=== PATIENT | male | born 1955 | race Caucasian/White ===

== ENCOUNTER → 2020-02-06 09:13 | Outpatient (BNVA) | payer MEDICARE, SELFPAY | PROVIDERS: PCP Internal Medicine; Visit Provider Internal Medicine Gastroenterology | DX: Z13.89 Encounter for screening for other disorder (principal) | CPT/HCPCS: Q3014 ==

== ENCOUNTER 2020-04-28 10:30 | Outpatient (REF) | payer MEDICARE, SELFPAY ==
[2020-04-28 12:40] LABS: Alanine Aminotransferase 21 U/L (0-40); Albumin Level 4.1 g/dL (3.5-5.0); Alkaline Phosphatase 108 U/L (39-117); Aspartate Amino Transferase 21 U/L (5-37); Bilirubin Direct 0.3 mg/dL (0.0-0.5); Bilirubin Total 0.9 mg/dL (0.0-1.0); Cholesterol 164 mg/dL; Glucose Fasting 123 mg/dL (60-99); HDL Cholesterol 40 mg/dL; LDL Cholesterol Calculated 89 mg/dl; Total Protein 6.8 g/dL (6.5-8.0); Triglycerides 178 mg/dL
[2020-04-28 12:48] LABS: Estimated Average Glucose 117 mg/dL; Hemoglobin A1c % 5.7 %
[2020-04-28 13:16] LABS: Reflex LDLD? No
== END 2020-04-28 10:31 | disposition home or self-care (01) ==
LOC: HO.LNP 10:30
PROVIDERS: PCP Internal Medicine; Visit Provider Internal Medicine
DX: R73.09 Other abnormal glucose (principal); E78.00 Pure hypercholesterolemia, unspecified
CPT/HCPCS: 80061; 80076; 82947; 83036

== ENCOUNTER → 2020-06-04 09:52 | Outpatient (BNVA) | payer MEDICARE, SELFPAY | PROVIDERS: PCP Internal Medicine; Visit Provider Internal Medicine Gastroenterology | DX: Z12.11 Encounter for screening for malignant neoplasm of colon (principal); D64.9 Anemia, unspecified; K21.00 Gastro-esophageal reflux disease with esophagitis, without bleeding | CPT/HCPCS: 99212 ==

== ENCOUNTER 2020-08-04 09:16 | Day surgery (SDC) | payer MEDICARE, SELFPAY ==
[2020-07-28 15:16] VITALS: BMI 38.7
--- NOTE | 2020-08-03 10:39 | HO.ANESPROP2 ---
Documented by User: Amy Avilez 08/03/20 10:40 HPI - Anesthesia Eval Consult details Narrative: 65yo M for Colonoscopy PMFSH Active Problems Active Problems: All Active Problems (Updated 07/28/20 @ 15:12 by Sayra Perez) Hyperlipidemia (Acute) GERD with esophagitis (Acute) Anemia (Acute) History of coronary angioplasty with insertion of stent (Acute) Colon cancer screening (Acute) Past Medical History Medical History Coronary artery disease Erosive esophagitis GERD (gastroesophageal reflux disease) HTN (hypertension) Hyperlipidemia Myocardial infarction On beta veronica at home Surgical History Surgical History H/O endoscopy History of esophagogastroduodenoscopy (EGD) History of tonsillectomy Hx of colonoscopy Hx of heart artery stent [place] teeth extracted Social History Social History Alcohol intake: current Alcohol intake frequency: a few times a week Alcohol type: beer Patient Tobacco Use Status: Former Tobacco user Quit Date: 2003 Tobacco use type: Cigarette Advance Directives: No Advance Directives Information Provided: No Advance Directives on File: No Recently lost weight without trying: No Eating poorly because of decreased appetite: No Nutrition Risks: No Nutritional Risk Meds Allergies Allergy/AdvReac Type Severity Reaction Status Date / Time No Known Allergies Allergy Verified 08/04/20 09:52 Home Medications Medication Instructions Recorded Confirmed Last Taken Type aspirin 81 mg tablet,delayed 81 mg PO DAILY 02/06/20 08/04/20 08/02/20 History release atorvastatin 80 mg tablet 80 mg PO DAILY 02/06/20 07/28/20 Unknown History betamethasone dipropionate 0.05 % 1 appl TOPICAL DAILY 02/06/20 07/28/20 Unknown History topical cream metoprolol tartrate 50 mg tablet 50 mg PO BID 02/06/20 08/04/20 08/04/20 07:00 History omeprazole magnesium 20 mg 20 mg PO DAILY 02/06/20 08/04/20 08/04/20 07:00 History capsule,delayed release Exam Exam Date and Time: August 03, 2020 1039 Height,Weight and Vital Signs: Height 5 ft 9.5 in Weight 120.656 kg Assessment and Plan Assessment Anesthesia Assessment: Chart Reviewed Documented by User: Nasreen Bateman 08/04/20 10:41 PMFSH Past Medical History Medical History Coronary artery disease Erosive esophagitis GERD (gastroesophageal reflux disease) HTN (hypertension) Hyperlipidemia Myocardial infarction On beta veronica at home Surgical History Surgical History H/O endoscopy History of esophagogastroduodenoscopy (EGD) History of tonsillectomy Hx of colonoscopy Hx of heart artery stent [place] teeth extracted Social History Social History Alcohol intake: current Alcohol intake frequency: a few times a week Alcohol type: beer Patient Tobacco Use Status: Former Tobacco user Quit Date: 2003 Tobacco use type: Cigarette Advance Directives: No Advance Directives Information Provided: No Advance Directives on File: No Recently lost weight without trying: No Eating poorly because of decreased appetite: No Nutrition Risks: No Nutritional Risk Meds Allergies Allergy/AdvReac Type Severity Reaction Status Date / Time No Known Allergies Allergy Verified 08/04/20 09:52 Home Medications Medication Instructions Recorded Confirmed Last Taken Type aspirin 81 mg tablet,delayed 81 mg PO DAILY 02/06/20 08/04/20 08/02/20 History release atorvastatin 80 mg tablet 80 mg PO DAILY 02/06/20 07/28/20 Unknown History betamethasone dipropionate 0.05 % 1 appl TOPICAL DAILY 02/06/20 07/28/20 Unknown History topical cream metoprolol tartrate 50 mg tablet 50 mg PO BID 02/06/20 08/04/20 08/04/20 07:00 History omeprazole magnesium 20 mg 20 mg PO DAILY 02/06/20 08/04/20 08/04/20 07:00 History capsule,delayed release Exam Airway Mallampati Class: II TM Dist: >3cm Neck ROM: Full Heart: RRR Lungs: CTA Assessment and Plan Assessment Anesthesia Assessment: Anesthesia Plan Discussed and Chart Reviewed Final Anesthetic Review NPO: Yes ASA Class: II Final Preanesthetic Review: Meds/Allgs Chart Reviewed, Consent Obtained/Reviewed and Anes Risks/Benef Reviewed Patient Risk: Low Procedure Risk: Low Anesthetic Plan Anesthetic Plan: MAC: Disposition: Standard PACU
[2020-08-04 09:52] VITALS: BP 129/48; PULSE 57; RESP 16; TEMP 36.7; O2SAT 96
[2020-08-04] MEDS: Lactated Ringers 1,000 ML 100 ML IVCONT (10:09)
--- NOTE | 2020-08-04 10:57 | P.OP_ITS ---
Operative Note Operative Note Date of Service: 08/04/20 Narrative: Pre-op diagnosis: Colon cancer screening Post-op diagnosis: other ( colon polyp, diverticulosis, hemorrhoids) Procedure: COLONOSCOPY TILL CECUM WITH BIOPSIES Consent: Indications for the procedure and potential complications of bleeding, perforation, reaction to medications and missed diagnosis were discussed with the patient and informed consent was obtained. Instrument: Olympus PCF H 190 L variable stiffness pediatric colonoscope Monitoring: Vital signs and clinical assessment, intermittent blood pressure monitoring, continuous EKG monitoring, Pulse oximetry and Carbon Dioxide monitoring were done throughout the procedure. Colon withdrawl time was 15 minutes. Procedure: The patient was placed in the left lateral decubitis position and pre-procedure medications were administered. After a digital rectal examination of the ano-rectum, the video colonoscope was inserted into the rectum and advanced through the colon to the cecum. The colonoscope was slowly withdrawn in a retrograde panoramic fashion and the colon mucosa was carefully examined including a retroflexed view of the rectum. Findings and interventions are described below. Procedure Difficulty: Without difficulty Findings: Terminal Ileum: Not evaluated Cecum: Normal Ascending Colon: Normal Transverse Colon: Normal Descending Colon: Normal Sigmoid Colon: A few 4-5 mm diminutive appearing polyps in the rectosigmoid - 1 removed with cold biopsy. Moderate diverticulosis Rectum: Normal Ano-rectum: Moderate internal hemorrhoids Colon preparation: Good after copious irrigation Impression and Post Procedure Diagnosis: Colonoscopy Findings: A few 4-5 mm diminutive appearing polyps in the rectosigmoid - 1 removed with cold biopsy. Moderate diverticulosis seen in the sigmoid colon Moderate hemorrhoids on retroflexed exam. Plan: Await pathology results Patient has an appointment on 09/07/20 in the GI Clinic with Abiodun Fields M.D. Repeat Colonoscopy interval based on path results - in 5 years if polyps are adenomatous and 10 years if polyps are hyperplastic. Above findings were reviewed with the patient and colon polyps and diverticulosis handouts were given in the discharge area Surgeon: Abiodun Fields MD Anesthesia: MAC (Tawana Gonsalves CRNA) Was an Interventional Pain Physician used for this Procedure?: Yes Interventional Pain Physician: Nisreen Chen Estimated blood loss (mL): 0 Pathology: other (A. SIGMOID POLYP) Condition: stable Disposition: PACU
--- NOTE | 2020-08-04 10:57 | MHC.SHP ---
Pre-Procedural Eval Section A Date of Service: 08/04/20 The patient is an INPATIENT: No The History & Physical has been completed within 30 days and I have reviewed it.: No Section B Chief Complaint: screening Relevant Social History: Tobacco Use (past smoker) Present Medications: see Short Stay Collaborative assessment Medical History: Significant History (CAD status post stent) History of Previous Operations: Relevant previous surgery/procedure and date(s) (H/O endoscopy (~08/2010) History of esophagogastroduodenoscopy (EGD) (11/01/18) Hx of colonoscopy (~08/2010)) Allergies: Allergies Allergy/AdvReac Type Severity Reaction Status Date / Time No Known Allergies Allergy Verified 08/04/20 09:52 Review of Systems Sugical H&P ROS: Negative: Constitution, Cardiovascular and Respiratory and Yes, Specify: Gastrointestinal (GERD) Exam Surgical H&P Exam: Normal: Heart, Normal: Lungs, Normal: Extremities and Normal: Abdomen Plan Diagnosis/Plan: Unchanged I have reviewed the history and physical and performed a pertinent physical examination on my patient. No changes have occurred unless specified.
[2020-08-04 11:39] VITALS: BP 97/44; PULSE 60; RESP 16; TEMP 36.1; O2SAT 95
[2020-08-04 11:55] VITALS: BP 123/51; PULSE 60; RESP 16; TEMP 36.1; O2SAT 98
== END 2020-08-04 12:31 | disposition home or self-care (01) ==
PROVIDERS: PCP Internal Medicine; Visit Provider Internal Medicine Gastroenterology
PROC: 0DJD8ZZ Inspection of Lower Intestinal Tract, Via Natural or Artificial Opening Endoscopic (ICD-10-PCS; CPT 45378; principal; 2020-08-04 10:40)
DX: Z12.11 Encounter for screening for malignant neoplasm of colon (principal); K63.5 Polyp of colon; K57.30 Diverticulosis of large intestine without perforation or abscess without bleeding; K64.8 Other hemorrhoids; K21.9 Gastro-esophageal reflux disease without esophagitis; K20.80 Other esophagitis without bleeding; I25.10 Atherosclerotic heart disease of native coronary artery without angina pectoris; Z98.61 Coronary angioplasty status; I10 Essential (primary) hypertension; Z79.82 Long term (current) use of aspirin; Z79.899 Other long term (current) drug therapy; Z87.891 Personal history of nicotine dependence
CPT/HCPCS: 45380; 88305

== ENCOUNTER → 2020-09-07 14:35 | Outpatient (BNVA) | payer MEDICARE, SELFPAY | PROVIDERS: PCP Internal Medicine; Referring Provider Internal Medicine; Visit Provider Internal Medicine Gastroenterology | DX: K21.00 Gastro-esophageal reflux disease with esophagitis, without bleeding (principal); D64.9 Anemia, unspecified; K62.1 Rectal polyp; E78.5 Hyperlipidemia, unspecified; I25.10 Atherosclerotic heart disease of native coronary artery without angina pectoris; Z87.891 Personal history of nicotine dependence | CPT/HCPCS: 99212 ==

== ENCOUNTER 2020-10-26 10:56 | Outpatient (REF) | payer MEDICARE, SELFPAY ==
[2020-10-26 11:01] LABS: MANUAL DIFF FLAG NO
[2020-10-26 11:25] LABS: Basophils Absolute Auto 0.1 X10*3/uL (0.0-0.2); Basophils Percent Auto 1.1 % (0-2); Eosinophils Absolute Auto 0.6 X10*3/uL (0.0-0.4); Eosinophils Percent Auto 7.1 % (0-4); Hematocrit 39.2 % (42-52); Hemoglobin 13.1 g/dl (14.0-18.0); Imm Gran Abs Auto 0.03 X10*3/uL (0.00-0.03); Imm Gran Pct Auto 0.4 % (0.0-0.4); Lymphocytes Absolute Auto 2.9 X10*3/uL (1.2-4.9); Lymphocytes Percent Auto 36.8 % (20-40); Mean Corpuscular HGB Conc 33.4 g/dl (31.0-36.0); Mean Corpuscular Hemoglobin 31.6 pg (27.0-33.0); Mean Corpuscular Volume 94.7 fL (80-98); Mean Platelet Volume 8.9 fL (9.4-12.4); Monocytes Absolute Auto 0.9 X10*3/uL (0.1-1.2); Monocytes Percent Auto 11.1 % (2-11); Neutrophils Absolute Auto 3.4 X10*3/uL (2.0-8.3); Neutrophils Percent Auto 43.5 % (45-73); Platelet Count 267 X10*3/uL (160-400); Red Blood Count 4.14 X10*6/uL (4.60-5.80); Red Cell Distribution Width 12.1 % (11.0-16.0); White Blood Count 7.9 X10*3/uL (4.8-10.8)
[2020-10-26 12:07] LABS: Appearance Urine CLEAR; Color Urine YELLOW; Glucose Urine UA NEG (NEG); Leukocyte Esterase Urine NEG (NEG); Nitrite Urine NEG (NEG); Urine Blood NEG (NEG); Urine Ketones NEG (NEG); Urine Protein NEG (NEG-TRACE)
[2020-10-26 12:44] LABS: Creatinine Urine 183.71 mg/dL; Microalbum/Creatinine Ratio Ur 2.7 ug/mg cr
[2020-10-26 13:00] LABS: Estimated Average Glucose 117 mg/dL; Hemoglobin A1c % 5.7 %
[2020-10-26 14:43] LABS: Alanine Aminotransferase 25 U/L (0-40); Alkaline Phosphatase 92 U/L (39-117); Anion Gap 14 (12-20); Aspartate Amino Transferase 21 U/L (5-37); Bilirubin Total 0.4 mg/dL (0.0-1.0); Blood Urea Nitrogen 15 mg/dL (9-16); Calcium 8.5 mg/dL (8.4-10.2); Carbon Dioxide 25 mmol/L (22-29); Chloride 108 mmol/L (96-108); Cholesterol 169 mg/dL; Estimated Glomerular Filt Rate > 60; Glucose Fasting 129 mg/dL (60-99); HDL Cholesterol 43 mg/dL; LDL Cholesterol Calculated 87 mg/dl; Potassium 4.1 mmol/L (3.3-5.1); Sodium 143 mmol/L (135-145); Total Protein 6.6 g/dL (6.5-8.0); Triglycerides 196 mg/dL
[2020-10-26 15:20] LABS: PSA,Total (Free>4and<10) 0.97 ng/mL (0.00-4.00)
[2020-10-26 18:10] LABS: Reflex LDLD? No
== END 2020-10-26 10:57 | disposition home or self-care (01) ==
LOC: HO.LNP 10:56
PROVIDERS: Visit Provider Internal Medicine
DX: Z12.5 Encounter for screening for malignant neoplasm of prostate (principal); R73.03 Prediabetes; E78.00 Pure hypercholesterolemia, unspecified; D72.820 Lymphocytosis (symptomatic)
CPT/HCPCS: 80053; 80061; 81003; 82043; 83036; 84153; 85025

== ENCOUNTER 2021-04-26 10:57 | Outpatient (REF) | payer MEDICARE, SELFPAY ==
[2021-04-26 12:24] LABS: Estimated Average Glucose 128 mg/dL; Hemoglobin A1c % 6.1 %
[2021-04-26 12:34] LABS: Alanine Aminotransferase 28 U/L (0-40); Albumin Level 3.9 g/dL (3.5-5.0); Alkaline Phosphatase 104 U/L (39-117); Aspartate Amino Transferase 25 U/L (5-37); Bilirubin Direct 0.3 mg/dL (0.0-0.5); Bilirubin Total 0.8 mg/dL (0.0-1.0); Cholesterol 163 mg/dL; Glucose Fasting 130 mg/dL (60-99); HDL Cholesterol 40 mg/dL; LDL Cholesterol Calculated 95 mg/dl; Triglycerides 142 mg/dL
[2021-04-26 13:12] LABS: Reflex LDLD? No
== END 2021-04-26 10:58 | disposition home or self-care (01) ==
LOC: HO.LNP 10:57
PROVIDERS: PCP Internal Medicine; Visit Provider Internal Medicine
DX: R73.03 Prediabetes (principal); E78.00 Pure hypercholesterolemia, unspecified
CPT/HCPCS: 80061; 80076; 82947; 83036

== ENCOUNTER 2021-08-26 11:55 | Outpatient (REF) | payer MEDICARE, SELFPAY ==
[2021-08-26 12:16] LABS: MANUAL DIFF FLAG NO
[2021-08-26 13:29] LABS: Basophils Absolute Auto 0.1 X10*3/uL (0.0-0.2); Basophils Percent Auto 1.2 % (0-2); Eosinophils Absolute Auto 0.5 X10*3/uL (0.0-0.4); Eosinophils Percent Auto 5.4 % (0-4); Hematocrit 40.2 % (42.0-52.0); Hemoglobin 13.3 g/dl (14.0-18.0); Imm Gran Abs Auto 0.03 X10*3/uL (0.00-0.03); Imm Gran Pct Auto 0.4 % (0.0-0.4); Lymphocytes Absolute Auto 2.6 X10*3/uL (1.2-4.9); Lymphocytes Percent Auto 31.7 % (20-40); Mean Corpuscular HGB Conc 33.1 g/dl (31.0-36.0); Mean Corpuscular Hemoglobin 30.6 pg (27.0-33.0); Mean Corpuscular Volume 92.4 fL (80.0-98.0); Mean Platelet Volume 8.7 fL (9.4-12.4); Monocytes Absolute Auto 0.9 X10*3/uL (0.1-1.2); Monocytes Percent Auto 10.6 % (2-11); Neutrophils Absolute Auto 4.2 x10*3/uL (2.0-8.3); Neutrophils Percent Auto 50.7 % (45-73); Platelet Count 258 X10*3/uL (160-400); Red Blood Count 4.35 X10*6/uL (4.60-5.80); White Blood Count 8.3 X10*3/uL (4.8-10.8)
[2021-08-26 14:00] LABS: Iron 120 mcg/dL (45-160); Percent Iron Saturation 36 % (15-50); Total Iron Binding Capacity 329 mcg/dL (228-428); Unsaturated Iron Binding 209 ug/dL
[2021-08-26 14:20] LABS: Vitamin B12 216 pg/mL (200-900)
[2021-08-26 14:25] LABS: Ferritin 275 ng/mL (20-250)
[2021-08-26 14:56] LABS: Vitamin D 25-OH Total 32.7 ng/mL (>30)
== END 2021-08-26 11:56 | disposition home or self-care (01) ==
LOC: HO.LAB 11:55
PROVIDERS: PCP Internal Medicine; Visit Provider Internal Medicine Gastroenterology
DX: D64.9 Anemia, unspecified (principal); K21.00 Gastro-esophageal reflux disease with esophagitis, without bleeding
CPT/HCPCS: 36415; 82306; 82607; 82728; 83540; 85025

== ENCOUNTER → 2021-09-02 08:23 | Outpatient (BNVA) | payer MEDICARE, SELFPAY | PROVIDERS: PCP Internal Medicine; Referring Provider Internal Medicine; Visit Provider Internal Medicine Gastroenterology | DX: D64.9 Anemia, unspecified (principal); K21.00 Gastro-esophageal reflux disease with esophagitis, without bleeding | CPT/HCPCS: 99212 ==

== ENCOUNTER 2021-10-29 11:08 | Outpatient (REF) | payer MEDICARE, SELFPAY ==
[2021-10-29 11:12] LABS: MANUAL DIFF FLAG NO
[2021-10-29 11:27] LABS: Appearance Urine Clear; Color Urine Yellow; Glucose Urine UA Negative (Negative); Leukocyte Esterase Urine Negative (Negative); Nitrite Urine Negative (Negative); Specific Gravity - Urine 1.015 (1.005-1.025); Urine Blood Negative (Negative); Urine Ketones Negative (Negative); Urine Protein Negative (Neg-Trace)
[2021-10-29 11:40] LABS: Basophils Absolute Auto 0.1 X10*3/uL (0.0-0.2); Basophils Percent Auto 0.9 % (0-2); Eosinophils Absolute Auto 0.6 X10*3/uL (0.0-0.4); Eosinophils Percent Auto 7.3 % (0-4); Hematocrit 41.1 % (42.0-52.0); Hemoglobin 13.8 g/dl (14.0-18.0); Imm Gran Abs Auto 0.02 X10*3/uL (0.00-0.03); Imm Gran Pct Auto 0.3 % (0.0-0.4); Lymphocytes Absolute Auto 2.6 X10*3/uL (1.2-4.9); Mean Corpuscular HGB Conc 33.6 g/dl (31.0-36.0); Mean Corpuscular Hemoglobin 30.9 pg (27.0-33.0); Mean Corpuscular Volume 92.2 fL (80.0-98.0); Mean Platelet Volume 8.9 fL (9.4-12.4); Monocytes Absolute Auto 0.8 X10*3/uL (0.1-1.2); Monocytes Percent Auto 10.9 % (2-11); Neutrophils Absolute Auto 3.6 x10*3/uL (2.0-8.3); Neutrophils Percent Auto 46.6 % (45-73); Platelet Count 276 X10*3/uL (160-400); Red Blood Count 4.46 X10*6/uL (4.60-5.80); White Blood Count 7.7 X10*3/uL (4.8-10.8)
[2021-10-29 11:50] LABS: Estimated Average Glucose 126 mg/dL; Hemoglobin A1C 152.5746 umol/L
[2021-10-29 11:52] LABS: Alanine Aminotransferase 45 U/L (0-40); Albumin Level 4.1 g/dL (3.5-5.0); Alkaline Phosphatase 100 U/L (39-117); Anion Gap 15 (12-20); Aspartate Amino Transferase 37 U/L (5-37); Bilirubin Total 0.7 mg/dL (0.0-1.0); Blood Urea Nitrogen 15 mg/dL (9-16); Carbon Dioxide 25 mmol/L (22-29); Chloride 104 mmol/L (96-108); Cholesterol 183 mg/dL; Estimated Glomerular Filt Rate > 60; Glucose Fasting 139 mg/dL (60-99); HDL Cholesterol 41 mg/dL; LDL Cholesterol Calculated 104 mg/dl; Potassium 4.3 mmol/L (3.3-5.1); Sodium 140 mmol/L (135-145); Total Protein 7.1 g/dL (6.5-8.0); Triglycerides 191 mg/dL
[2021-10-29 12:11] LABS: Creatinine Urine 141.62 mg/dL; Microalbumin Urine < 5.0 mg/L
[2021-10-29 12:15] LABS: PSA,Total (Free>4and<10) 0.85 ng/mL (0.00-4.00)
== END 2021-10-29 11:09 | disposition home or self-care (01) ==
LOC: HO.LNP 11:08
PROVIDERS: Visit Provider Internal Medicine
DX: Z12.5 Encounter for screening for malignant neoplasm of prostate (principal); R73.03 Prediabetes; E78.00 Pure hypercholesterolemia, unspecified; D72.820 Lymphocytosis (symptomatic)
CPT/HCPCS: 80053; 80061; 81003; 82043; 83036; 84153; 85025

== ENCOUNTER 2022-03-21 11:40 | Outpatient (REF) | payer MEDICARE, SELFPAY ==
[2022-03-21 12:15] LABS: Hematocrit 39.5 % (42.0-52.0); Hemoglobin 13.4 g/dl (14.0-18.0); Mean Corpuscular HGB Conc 33.9 g/dl (31.0-36.0); Mean Corpuscular Volume 91.4 fL (80.0-98.0); Mean Platelet Volume 8.3 fL (9.4-12.4); Platelet Count 288 X10*3/uL (160-400); Red Blood Count 4.32 X10*6/uL (4.60-5.80); Red Cell Distribution Width 11.6 % (11.0-16.0); White Blood Count 7.2 X10*3/uL (4.8-10.8)
[2022-03-21 13:29] LABS: Vitamin B12 418 pg/mL (200-900)
== END 2022-03-21 11:41 | disposition home or self-care (01) ==
LOC: HO.LAB 11:40
PROVIDERS: PCP Internal Medicine; Visit Provider Internal Medicine Gastroenterology
DX: D64.9 Anemia, unspecified (principal)
CPT/HCPCS: 36415; 82607; 85027

== ENCOUNTER 2022-04-26 11:33 | Outpatient (REF) | payer MEDICARE, SELFPAY ==
[2022-04-26 12:23] LABS: Estimated Average Glucose 126 mg/dL
[2022-04-26 12:56] LABS: Alanine Aminotransferase 32 U/L (0-40); Alkaline Phosphatase 98 U/L (39-117); Aspartate Amino Transferase 22 U/L (5-37); Bilirubin Direct < 0.2 mg/dL (0.0-0.5); Bilirubin Total 0.5 mg/dL (0.0-1.0); Cholesterol 202 mg/dL; Glucose Fasting 128 mg/dL (60-99); HDL Cholesterol 38 mg/dL; LDL Cholesterol Calculated 101 mg/dl; Total Protein 6.7 g/dL (6.5-8.0); Triglycerides 316 mg/dL
[2022-04-26 14:24] LABS: Reflex LDLD? No
== END 2022-04-26 11:34 | disposition home or self-care (01) ==
LOC: HO.LNP 11:33
PROVIDERS: Visit Provider Internal Medicine
DX: E78.00 Pure hypercholesterolemia, unspecified (principal); R73.03 Prediabetes
CPT/HCPCS: 80061; 80076; 82947; 83036

== ENCOUNTER 2022-09-01 07:49 | Outpatient (AMB) | payer MEDICARE, SELFPAY ==
--- NOTE | 2022-09-01 07:54 | A.OFFVIS_ITS ---
Intake Vital Signs 09/01/22 07:57 Height 5 ft 9 in Weight 258 lb BMI 38.1 BP 122/57 L Blood Pressure Location Lt brachial Position Sitting Pulse 64 Intake Visit Reasons: 1 year FU for GERD Intake Note: Patient yearly follow up for GERD. Patient denies any GI issues. 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 CHRONIC ILLNESSES: GERD), hyperlipidemia, coronary artery disease. ? [facility]S [facility]: 10/22/18 normal CBC with mild anemia with H&H 13.6 and 40.4, platelet 290, normal Chem panel normal LFTs 08/2021 Normal iron studies with ferritin level of 275 Vitamin B 12 low normal at 216 ?ENDOSCOPIC STUDIES: 08/04/20 COLONOSCOPY SHOWED DIVERTICULOSIS AND HEMORRHOIDS. ? A few diminutive polyps in the rectosigmoid - 1 polyp removed and hyperplastic on biopsy ? EGD WAS PERFORMED ON 11/01/18: ? LARYNX: Mild changes suggestive of LPRD ? ESOPHAGUS: Small hiatal hernia - biopsied to check for Carter's ? STOMACH: Gastritis ? DUODENUM: Benign appearing duodenal polyp ? Plan: ? Continue present medications (Omeprazole at 20 mg PO once daily) ? Patient has an appointment on 11/12/18 in the GI Clinic with Abiodun Fields M.D ? Above findings were reviewed with the patient and handout on GERD was provided. ? Biopsies showed: ? A. Duodenum, bulb polyp, biopsy: Chronic duodenitis with foveolar metaplasia, negative for dysplasia. ? B. Stomach, antrum, biopsy: Reactive gastropathy with intestinal metaplasia; negative ? for dysplasia; no Helicobacter pylori organisms seen. ? C. Esophagus, distal, biopsy: Esophagogastric junctional mucosa with moderate active ? chronic inflammation and squamous epithelium with reactive features suggestive of reflux ? disease; negative for intestinal metaplasia. ?TODAY'S VISIT Denies problems with heartburn or dysphagia. Denies constipation, diarrhea or bloating Takes OTC Omeprazole since his insurance does not cover Omeprazole. PAST VISIT: Pt is accompanied by his Colonoscopy results reviewed. Lab showed chronic anemia - evaluated several yrs ago by PCP and no etiology found. ? Heartburn is under control with medications. ? Taking Omeprazole once daily - gets over the counter since Insurance does not cover for it. ? Not taking Ranitidine or Zantac. Denies recent change in bowel habits, constipation, diarrhea, black stools or rectal bleeding. Patient has CAD and is status post Coronary angiography with stent placement. He denies major pulmonary problems, Denies problems with anesthesia in the past. Denies being on chronic anticoagulation. Patient denies known family history of colon polyps, colon cancer or other GI malignancies. ?Mom had breast Ca. Admits to snoring at night and unaware if he has sleep?apnea PFSH Medical History Coronary artery disease Erosive esophagitis GERD (gastroesophageal reflux disease) HTN (hypertension) Hyperlipidemia Myocardial infarction On beta veronica at home Surgical History H/O endoscopy History of esophagogastroduodenoscopy (EGD) History of tonsillectomy Hx of colonoscopy Hx of heart artery stent [place] teeth extracted Social History Alcohol intake: current Alcohol intake frequency: a few times a week Alcohol type: beer Patient Tobacco Use Status: Former Tobacco user Quit Date: 2003 Tobacco use type: Cigarette Review of Systems Const All systems reviewed & are unremarkable except as noted in HPI and below Physical Exam Vital Signs: Last Vital Signs Pulse 64 09/01/22 07:57 BP 122/57 L 09/01/22 07:57 BMI result Body Mass Index 38.1 Const General: healthy appearing and no acute distress Nutritional Appearance: obese Orientation/consciousness: patient oriented x3 Limitations: no limitations HEENT Head: Yes normal to inspection Ears: hearing grossly normal bilaterally Eyes Sclerae: sclerae normal Pupils: Equal, round and reactive pupils present Neck Neck: Yes normal visual inspection Chest Chest palpation & inspection: normal inspection of the chest Resp Effort & Inspection: normal respiratory effort Auscultation: clear to auscultation bilaterally Cardio Palpation: normal PMI Rate: regular rate Rhythm: regular rhythm Heart sounds: S1 normal heart sound present, S2 normal heart sound present and no murmurs GI Palpation (GI): Soft to palpation, nontender and No hepatosplenomegaly present Auscultation: normal bowel sounds Rectal Exam - Male: Yes deferred Skin General skin exam: no rashes or lesions noted Neuro General: patient oriented x3, gait normal and moves all extremities Cranial nerves: Yes Equal, round and reactive pupils present Psych Appearance: grossly normal Mental Status: mental status grossly normal Assessment & Plan Assessment & Plan (1) Anemia: Code(s): D64.9 - Anemia, unspecified (2) Colon cancer screening: Comment: Patient is at average risk for colon cancer. He had a negative colonoscopy in August 2010. 08/04/20 COLONOSCOPY SHOWED DIVERTICULOSIS AND HEMORRHOIDS. A few diminutive polyps in the rectosigmoid - 1 polyp removed and hyperplastic on biopsy. Repeat colonoscopy is advised in 10 years (earlier in case of new symptoms or FH) - due 07/2030 Code(s): Z12.11 - Encounter for screening for malignant neoplasm of colon (3) GERD with esophagitis: Comment: Continue omeprazole 20 mg once daily Code(s): K21.00 - Gastro-esophageal reflux disease with esophagitis, without bleeding Plan 67-year-old male with GERD), hyperlipidemia, coronary artery disease seen for follow-up of GERD complicated by erosive esophagitis noted on past EGD in 2010. Symptoms are well controlled with omeprazole 20 mg once daily. October 2018 repeat EGD showed a small hiatal hernia, Gastritis and a benign appearing duodenal polyp. Esophageal biopsies showed junctional mucosa with moderate active chronic inflammation and squamous epithelium with reactive features suggestive of reflux disease; negative for intestinal metaplasia. Patient is advised to continue omeprazole 20 mg once daily. ?August, repeat Colonoscopy revealed hyperplastic polyps. Patient was advised to continue Vitamin B 12 (low normal B 12 levels) and work on loosing weight. Follow-up appointment in 1 year. Coding Level of Care Code Est Pt Level 3 (70688) Diagnoses Anemia D64.9 Colon cancer screening Z12.11 GERD with esophagitis K21.00 Time Spent (min) 17
[2022-09-01 07:57] VITALS: BP 122/57; PULSE 64; BMI 38.1
== END 2022-09-01 08:18 | disposition home or self-care (01) ==
PROVIDERS: Visit Provider Internal Medicine Gastroenterology
DX: D64.9 Anemia, unspecified (principal); Z12.11 Encounter for screening for malignant neoplasm of colon; K21.00 Gastro-esophageal reflux disease with esophagitis, without bleeding
CPT/HCPCS: 99213

== ENCOUNTER → 2022-09-01 07:49 | Outpatient (BNVA) | payer MEDICARE, SELFPAY | PROVIDERS: Visit Provider Internal Medicine Gastroenterology | DX: Z12.11 Encounter for screening for malignant neoplasm of colon (principal); K21.00 Gastro-esophageal reflux disease with esophagitis, without bleeding; D64.9 Anemia, unspecified | CPT/HCPCS: 99212 ==

== ENCOUNTER 2022-12-08 10:44 | Outpatient (REF) | payer MEDICARE, SELFPAY ==
[2022-12-08 11:10] LABS: MANUAL DIFF FLAG NO
[2022-12-08 11:27] LABS: Basophils Absolute Auto 0.1 X10*3/uL (0.0-0.2); Basophils Percent Auto 0.8 % (0-2); Eosinophils Absolute Auto 0.5 X10*3/uL (0.0-0.4); Eosinophils Percent Auto 5.8 % (0-4); Hematocrit 40.6 % (42.0-52.0); Hemoglobin 13.6 g/dl (14.0-18.0); Imm Gran Abs Auto 0.02 X10*3/uL (0.00-0.03); Imm Gran Pct Auto 0.2 % (0.0-0.4); Lymphocytes Absolute Auto 3.4 X10*3/uL (1.2-4.9); Lymphocytes Percent Auto 41.3 % (20-40); Mean Corpuscular HGB Conc 33.5 g/dl (31.0-36.0); Mean Corpuscular Hemoglobin 31.1 pg (27.0-33.0); Mean Corpuscular Volume 92.7 fL (80.0-98.0); Mean Platelet Volume 8.9 fL (9.4-12.4); Monocytes Absolute Auto 0.9 X10*3/uL (0.1-1.2); Monocytes Percent Auto 11.3 % (2-11); Neutrophils Absolute Auto 3.3 x10*3/uL (2.0-8.3); Neutrophils Percent Auto 40.6 % (45-73); Platelet Count 290 X10*3/uL (160-400); Red Blood Count 4.38 X10*6/uL (4.60-5.80); Red Cell Distribution Width 12.2 % (11.0-16.0); White Blood Count 8.3 X10*3/uL (4.8-10.8)
[2022-12-08 11:32] LABS: Appearance Urine Clear; Color Urine Yellow; Glucose Urine UA Negative (Negative); Leukocyte Esterase Urine Negative (Negative); Nitrite Urine Negative (Negative); Specific Gravity - Urine 1.025 (1.005-1.025); Urine Blood Negative (Negative); Urine Ketones Negative (Negative); Urine Protein Negative (Neg-Trace)
[2022-12-08 11:40] LABS: Estimated Average Glucose 120 mg/dL; Hemoglobin A1c % 5.8 % (<6.0)
[2022-12-08 11:46] LABS: Alanine Aminotransferase 34 U/L (0-40); Alkaline Phosphatase 85 U/L (39-117); Anion Gap 11 (12-20); Aspartate Amino Transferase 34 U/L (5-37); Bilirubin Total 0.5 mg/dL (0.0-1.0); Blood Urea Nitrogen 16 mg/dL (9-16); Calcium 9.3 mg/dL (8.4-10.2); Carbon Dioxide 28 mmol/L (22-29); Chloride 107 mmol/L (96-108); Cholesterol 161 mg/dL (<200); Estimated Glomerular Filt Rate > 60; Glucose Fasting 119 mg/dL (60-99); HDL Cholesterol 41 mg/dL (>40); LDL Cholesterol Calculated 99 mg/dL (<100); Potassium 4.1 mmol/L (3.3-5.1); Sodium 142 mmol/L (135-145); Total Protein 7.4 g/dL (6.5-8.0); Triglycerides 108 mg/dL (<150)
[2022-12-08 12:10] LABS: Prostate Specific Antigen 1.32 ng/mL (<0.05-4.0)
[2022-12-08 12:29] LABS: Creatinine Urine 180.32 mg/dL; Microalbum/Creatinine Ratio Ur 3.8 ug/mg cr (<30)
== END 2022-12-08 10:45 | disposition home or self-care (01) ==
LOC: HO.LNP 10:44
PROVIDERS: Visit Provider Internal Medicine
DX: R73.09 Other abnormal glucose (principal); E78.00 Pure hypercholesterolemia, unspecified; D72.820 Lymphocytosis (symptomatic); Z12.5 Encounter for screening for malignant neoplasm of prostate
CPT/HCPCS: 80053; 80061; 81003; 82043; 82570; 83036; 84153; 85025

== ENCOUNTER 2023-06-05 11:00 | Outpatient (REF) | payer MEDICARE, SELFPAY ==
[2023-06-05 12:25] LABS: Estimated Average Glucose 126 mg/dL
[2023-06-05 13:17] LABS: Alanine Aminotransferase 31 U/L (0-40); Albumin Level 3.9 g/dL (3.5-5.0); Alkaline Phosphatase 91 U/L (39-117); Aspartate Amino Transferase 29 U/L (5-37); Bilirubin Direct 0.2 mg/dL (0.0-0.5); Bilirubin Total 0.5 mg/dL (0.0-1.0); Cholesterol 166 mg/dL (<200); Glucose Fasting 126 mg/dL (60-99); HDL Cholesterol 40 mg/dL (>40); LDL Cholesterol Calculated 98 mg/dL (<100); Total Protein 7.3 g/dL (6.5-8.0); Triglycerides 141 mg/dL (<150)
[2023-06-05 15:05] LABS: Reflex LDLD? No
== END 2023-06-05 11:01 | disposition home or self-care (01) ==
LOC: HO.LNP 11:00
PROVIDERS: Visit Provider Internal Medicine
DX: R73.09 Other abnormal glucose (principal); E78.00 Pure hypercholesterolemia, unspecified
CPT/HCPCS: 80061; 80076; 82947; 83036

== ENCOUNTER 2023-08-31 07:47 | Outpatient (AMB) | payer MEDICARE, SELFPAY ==
--- NOTE | 2023-08-31 07:49 | A.OFFVIS_ITS ---
Vital Signs 08/31/23 07:50 Height 5 ft 9 in Weight 260 lb BMI 38.4 BP 143/66 H Blood Pressure Location Lt brachial Position Sitting Pulse 65 Intake Visit Reasons: 1 Year Follow up Intake Note: Patient follow up for yearly for Anemia. Patient denies any GI issues. 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 CHRONIC ILLNESSES: GERD), hyperlipidemia, coronary artery disease. ? LABS IN [facility]: 10/22/18 normal CBC with mild anemia with H&H 13.6 and 40.4, platelet 290, normal Chem panel normal LFTs 08/2021 Normal iron studies with ferritin level of 275 Vitamin B 12 low normal at 216 ?ENDOSCOPIC STUDIES: 08/04/20 COLONOSCOPY SHOWED DIVERTICULOSIS AND HEMORRHOIDS. ? A few diminutive polyps in the rectosigmoid - 1 polyp removed and hyperplastic on biopsy ? EGD WAS PERFORMED ON 11/01/18: ? LARYNX: Mild changes suggestive of LPRD ? ESOPHAGUS: Small hiatal hernia - biopsied to check for Carter's ? STOMACH: Gastritis ? DUODENUM: Benign appearing duodenal polyp ? Plan: ? Continue present medications (Omeprazole at 20 mg PO once daily) ? Patient has an appointment on 11/12/18 in the GI Clinic with Abiodun Fields M.D ? Above findings were reviewed with the patient and handout on GERD was provided. ? Biopsies showed: ? A. Duodenum, bulb polyp, biopsy: Chronic duodenitis with foveolar metaplasia, negative for dysplasia. ? B. Stomach, antrum, biopsy: Reactive gastropathy with intestinal metaplasia; negative for dysplasia; no Helicobacter pylori organisms seen. ? C. Esophagus, distal, biopsy: Esophagogastric junctional mucosa with moderate active ? chronic inflammation and squamous epithelium with reactive features suggestive of reflux disease; negative for intestinal metaplasia. ?TODAY'S VISIT Denies problems with heartburn or dysphagia. Denies constipation, diarrhea or bloating Takes OTC Omeprazole since his insurance does not cover Omeprazole. Chronic mild anemia for the past 36 yrs - no etiology found. PAST VISIT: Pt is accompanied by his Colonoscopy results reviewed. Lab showed chronic anemia - evaluated several yrs ago by PCP and no etiology found. ? Heartburn is under control with medications. ? Taking Omeprazole once daily - gets over the counter since Insurance does not cover for it. ? Not taking Ranitidine or Zantac. Denies recent change in bowel habits, constipation, diarrhea, black stools or rectal bleeding. Patient has CAD and is status post Coronary angiography with stent placement. He denies major pulmonary problems, Denies problems with anesthesia in the past. Denies being on chronic anticoagulation. Patient denies known family history of colon polyps, colon cancer or other GI malignancies. ?Mom had breast Ca. Admits to snoring at night and unaware if he has sleep?apnea PFSH Medical History Coronary artery disease Erosive esophagitis GERD (gastroesophageal reflux disease) HTN (hypertension) Hyperlipidemia Myocardial infarction On beta veronica at home Surgical History [place] teeth extracted History of tonsillectomy Hx of heart artery stent History of esophagogastroduodenoscopy (EGD) H/O endoscopy Hx of colonoscopy Social History Alcohol intake: current Alcohol intake frequency: a few times a week Alcohol type: beer Patient Tobacco Use Status: Former Tobacco user Tobacco use type: Cigarette Review of Systems Const Denies fever(s), Denies headache(s) and Denies weight loss Eyes Denies eye discharge and Denies irritation ENT Reports Normal hearing present, Denies dysphagia, Denies dizziness and Denies headache(s) Card Denies chest pain, Denies leg edema and Denies dyspnea on exertion Resp Denies cough, Denies dyspnea on exertion and Denies wheezing GI Denies abdominal pain, Denies change in bowel habits, Denies dysphagia and Denies heartburn Denies dysuria Musc Denies back pain and Reports arthralgias (knees and hands) Skin/Breast Denies pruritus, Denies rash and Denies jaundice Neuro Reports Normal hearing present, Denies Abnormal speech present, Denies dizziness, Denies headache(s) and Denies seizure-like activity Psych Denies anxiety, Denies depression and Denies panic attacks Endo Denies cold intolerance, Denies flushing and Denies heat intolerance Gómez/Lymph Denies easy bleeding and Denies easy bruising Aller/Immun Denies wheezing Physical Exam Vital Signs: Last Vital Signs Pulse 65 08/31/23 07:50 BP 143/66 H 08/31/23 07:50 BMI result Body Mass Index 38.4 Const General: healthy appearing and no acute distress Nutritional Appearance: obese Orientation/consciousness: patient oriented x3 Limitations: no limitations HEENT Head: Yes normal to inspection Ears: hearing grossly normal bilaterally Eyes Sclerae: sclerae normal Pupils: Equal, round and reactive pupils present Neck Neck: Yes normal visual inspection Chest Chest palpation & inspection: normal inspection of the chest Resp Effort & Inspection: normal respiratory effort Auscultation: clear to auscultation bilaterally Cardio Palpation: normal PMI Rate: regular rate Rhythm: regular rhythm Heart sounds: S1 normal heart sound present, S2 normal heart sound present and no murmurs GI Palpation (GI): Soft to palpation, nontender and No hepatosplenomegaly present Auscultation: normal bowel sounds Rectal Exam - Male: Yes deferred Skin General skin exam: no rashes or lesions noted Neuro General: patient oriented x3, gait normal and moves all extremities Cranial nerves: Yes Equal, round and reactive pupils present and Yes Normal hearing present Speech: No Abnormal speech present Psych Appearance: grossly normal Mental Status: mental status grossly normal Assessment & Plan Assessment & Plan (1) GERD with esophagitis: Comment: Continue omeprazole 20 mg once daily Code(s): K21.00 - Gastro-esophageal reflux disease with esophagitis, without bleeding Category: Medical (2) Anemia: Code(s): D64.9 - Anemia, unspecified Category: Medical (3) Colon cancer screening: Comment: Patient is at average risk for colon cancer. He had a negative colonoscopy in August 2010. 08/04/20 COLONOSCOPY SHOWED DIVERTICULOSIS AND HEMORRHOIDS. A few diminutive polyps in the rectosigmoid - 1 polyp removed and hyperplastic on biopsy. Repeat colonoscopy is advised in 10 years (earlier in case of new symptoms or FH) - due 07/2030 Code(s): Z12.11 - Encounter for screening for malignant neoplasm of colon Category: Medical Plan 68 year-old male with GERD), hyperlipidemia, coronary artery disease seen for follow-up of GERD complicated by erosive esophagitis noted on past EGD in 2010. Symptoms are well controlled with omeprazole 20 mg once daily. October 2018 repeat EGD showed a small hiatal hernia, Gastritis and a benign appearing duodenal polyp. Esophageal biopsies showed junctional mucosa with moderate active chronic inflammation and squamous epithelium with reactive features suggestive of reflux disease; negative for intestinal metaplasia. Patient is advised to continue omeprazole 20 mg once daily. August, repeat Colonoscopy revealed hyperplastic polyps. Chronic mild anemia for the past 36 yrs - no etiology found - iron studies were normal in the past. Patient was advised to continue Vitamin B 12 (low normal B 12 levels) and work on loosing weight. Follow-up appointment in 1 year Coding Level of Care Code Est Pt Level 3 (70537) Diagnoses GERD with esophagitis K21.00 Anemia D64.9 Colon cancer screening Z12.11 Time Spent (min) 15
[2023-08-31 07:50] VITALS: BP 143/66; PULSE 65; BMI 38.4
== END 2023-08-31 08:20 | disposition home or self-care (01) ==
PROVIDERS: PCP Internal Medicine; Visit Provider Internal Medicine Gastroenterology
DX: K21.00 Gastro-esophageal reflux disease with esophagitis, without bleeding (principal); D64.9 Anemia, unspecified; Z12.11 Encounter for screening for malignant neoplasm of colon
CPT/HCPCS: 99213

== ENCOUNTER → 2023-08-31 07:47 | Outpatient (BNVA) | payer MEDICARE, SELFPAY | PROVIDERS: PCP Internal Medicine; Visit Provider Internal Medicine Gastroenterology | DX: Z12.11 Encounter for screening for malignant neoplasm of colon (principal); K21.00 Gastro-esophageal reflux disease with esophagitis, without bleeding; D64.9 Anemia, unspecified | CPT/HCPCS: 99212 ==

== ENCOUNTER 2023-12-08 11:36 | Outpatient (REF) | payer MEDICARE, SELFPAY ==
[2023-12-08 11:41] LABS: MANUAL DIFF FLAG NO
[2023-12-08 12:02] LABS: Basophils Absolute Auto 0.1 X10*3/uL (0.0-0.2); Eosinophils Absolute Auto 0.5 X10*3/uL (0.0-0.4); Eosinophils Percent Auto 7.5 % (0-4); Hematocrit 39.9 % (42.0-52.0); Hemoglobin 13.5 g/dl (14.0-18.0); Imm Gran Abs Auto 0.02 X10*3/uL (0.00-0.03); Imm Gran Pct Auto 0.3 % (0.0-0.4); Lymphocytes Percent Auto 44.8 % (20-40); Mean Corpuscular HGB Conc 33.8 g/dl (31.0-36.0); Mean Corpuscular Hemoglobin 31.8 pg (27.0-33.0); Mean Corpuscular Volume 93.9 fL (80.0-98.0); Mean Platelet Volume 8.9 fL (9.4-12.4); Monocytes Absolute Auto 0.9 X10*3/uL (0.1-1.2); Monocytes Percent Auto 13.4 % (2-11); Neutrophils Absolute Auto 2.2 x10*3/uL (2.0-8.3); Platelet Count 279 X10*3/uL (160-400); Red Blood Count 4.25 X10*6/uL (4.60-5.80); Red Cell Distribution Width 12.3 % (11.0-16.0); White Blood Count 6.8 X10*3/uL (4.8-10.8)
[2023-12-08 12:03] LABS: Appearance Urine Clear; Color Urine Yellow; Glucose Urine UA Negative (Negative); Leukocyte Esterase Urine Negative (Negative); Nitrite Urine Negative (Negative); PH 7.5 (5.0-9.0); Specific Gravity - Urine 1.015 (1.005-1.025); Urine Blood Negative (Negative); Urine Ketones Negative (Negative); Urine Protein Negative (Neg-Trace)
[2023-12-08 12:13] LABS: Estimated Average Glucose 120 mg/dL; Hemoglobin A1c % 5.8 % (<6.0); Total Hemoglobin (HGBA1C) 3383.5137 umol/L
[2023-12-08 12:22] LABS: Bacteria Urine None Seen (None Seen); Hyaline Casts Urine 0-2 /LPF (0-2); RBC Urine 0-2 /HPF (0-2); Squamous Epithelial Cell Urine 0-2 /HPF (0-2); WBC Urine 0-5 /HPF (0-5)
[2023-12-08 12:42] LABS: PSA,Total (Free>4and<10) 1.21 ng/mL (0.00-4.00)
[2023-12-08 13:04] LABS: Creatinine Urine 87.03 mg/dL; Microalbumin Urine < 5.0 mg/L
[2023-12-08 13:30] LABS: Alanine Aminotransferase 42 U/L (0-40); Albumin Level 3.9 g/dL (3.5-5.0); Alkaline Phosphatase 85 U/L (39-117); Anion Gap 12 (12-20); Aspartate Amino Transferase 46 U/L (5-37); Bilirubin Total 0.7 mg/dL (0.0-1.0); Blood Urea Nitrogen 15 mg/dL (9-16); Calcium 9.9 mg/dL (8.4-10.2); Carbon Dioxide 26 mmol/L (22-29); Chloride 106 mmol/L (96-108); Cholesterol 196 mg/dL (<200); Estimated Glomerular Filt Rate > 60; Glucose Fasting 128 mg/dL (60-99); HDL Cholesterol 47 mg/dL (>40); LDL Cholesterol Calculated 121 mg/dL (<100); Sodium 140 mmol/L (135-145); Total Protein 7.4 g/dL (6.5-8.0); Triglycerides 140 mg/dL (<150)
== END 2023-12-08 11:37 | disposition home or self-care (01) ==
LOC: HO.LNP 11:36
PROVIDERS: Visit Provider Internal Medicine
DX: R73.09 Other abnormal glucose (principal); E78.00 Pure hypercholesterolemia, unspecified; D72.820 Lymphocytosis (symptomatic); Z12.5 Encounter for screening for malignant neoplasm of prostate
CPT/HCPCS: 80053; 80061; 81001; 82043; 82570; 83036; 84153; 85025

== ENCOUNTER 2024-06-06 10:40 | Outpatient (REF) | payer MEDICARE, SELFPAY ==
[2024-06-06 11:23] LABS: Alanine Aminotransferase 31 U/L (0-40); Albumin Level 3.9 g/dL (3.5-5.0); Alkaline Phosphatase 104 U/L (39-117); Aspartate Amino Transferase 35 U/L (5-37); Bilirubin Direct 0.2 mg/dL (0.0-0.5); Bilirubin Total 0.7 mg/dL (0.0-1.0); Cholesterol 175 mg/dL (<200); HDL Cholesterol 45 mg/dL (>40); LDL Cholesterol Calculated 95 mg/dL (<100); Total Protein 7.3 g/dL (6.5-8.0); Triglycerides 176 mg/dL (<150)
[2024-06-06 11:48] LABS: Reflex LDLD? No
== END 2024-06-06 10:41 | disposition home or self-care (01) ==
LOC: HO.LNP 10:40
PROVIDERS: Visit Provider Internal Medicine
DX: E78.00 Pure hypercholesterolemia, unspecified (principal)
CPT/HCPCS: 80061; 80076

== ENCOUNTER 2024-12-12 11:05 | Outpatient (REF) | payer MEDICARE, SELFPAY ==
--- OUTSIDE RECORDS SUMMARY | 2023-06-12 05:00 | XMS_ITS ---
Author Organization Gio Coffey MD Address [address] [place], [place] [id number] Care Team Providers Care Mannequin [employer] Name Role Phone Gio Coffey Primary Care Provider [phone] Allergies No Known Allergies REASON FOR VISIT 6 month, No Covid symptoms Medications Medication SIG (Take, Route, Frequency, Duration) Notes Start Date End Date Status ProAir HFA 108 (90 Base) MCG/ACT 2 puffs as needed Inhalation every 4 hrs for 30 days 07/13/2015 Not-Taking Lasix 20 MG 1 tablet Orally Once a day for 30 day(s) 09/21/2015 Not-Taking Atorvastatin Calcium 80 MG TAKE 1 TABLET BY MOUTH EVERY DAY Active Betamethasone Dipropionate 0.05 % as directed Externally daily for 90 days 09/03/2010 Active Vitamin B12 1000 MCG 1 tablet Orally Onc e a day for 30 day(s) Active Aspir-81 81 MG 1 tablet Orally Once a day Active Omeprazole 20 MG 1 capsule Orally Onc e a day Active Metoprolol Tartrate 50 MG 1 tablet Orall y Twice a day Active Vital Signs Blood pressure systolic 152 mm Hg 06/12/19 24 Blood pressure diastolic 66 mm Hg 024 Height 70 in 06/12/2023 Weight 268 lbs 06/12/2023 BMI 38.45 kg/m2 06/12/2023 weight is up 6 pounds since 05-06-22 Encounters Encounter Location Date Provider Diagnosis Gio Coffey MD [address] [place] [address] [place] [phone] 06/12/2023 Gio Coffey Old myocardial infarction I25.2 ; Coronary atherosclerosis due to lipid rich plaque I25.83 and Non morbid obesity due to excess calories E66.09 Assessments Encounter Date Diagnosis (ICD Code) Assessment Notes Treatment Notes Treatment Clinical Notes Section Notes 06/12/2023 Old myocardial infarction (ICD-10 - I25.2) on statins, will continue current regiment 06/12/2023 Coronary atherosclerosis due to lipid rich plaque (ICD-10 - I25.83) no chest pain. on statins, will continue current regiment 06/12/2023 Non morbid obesity due to excess calories (ICD-10 - E66.09) advised to diet Plan Of Treatment Medication Medication Name Sig Start Date Stop Date Notes Atorvastatin Calcium 80 MG TAKE 1 TABLET BY MOUTH EVERY DAY Aspir-81 81 MG 1 tablet Orally Once a day Metoprolol Tartrate 50 MG 1 tablet Orally Twice a day Treatment Notes Assessment Notes Old myocardial infarction on statins, wi ll continue current regiment Coronary atherosclerosis due to lipid rich plaque no chest pain. on statins, will continue current regiment Non morbid obesity due to excess calorie s advised to diet Next Appt Details Provider Name:Gio Correa ier, 12/19/2024 01:00:00 PM, [address] [place] [address], Suite [facility], [place], [place], [phone], Progress Notes * Vamshi MEJIA ADOB:1955 (68 yo M)Acc No.[id number]:06/12/2023 Progress Notes Patient: Vamshi Desai Provider: Maral Coffey MD :1955 A ge:68 Y S ex:Male Date:06/12/2023 Address:[address] [place], [place] [id number] Subjective: * Chief Complaints: * 6 monthNo Covid symptoms * HPI: S ymptom(s): patient is a 68 yo male here for 6 month follow up visit. * ROS: G eneral/Constitutional: Denies C hills. D enies F atigue. D enies F ever. D enies H eadache. E NT: Patient denies d ecreased sense of smell , any loss of taste , sore throat. D enies S ore throat. R espiratory: Denies C ough. D enies S hortness of breath at rest. D enies S hortness of breath with exertion. C ardiovascular: Denies C hest pain at rest. D enies C hest pain with exertion. D enies D izziness. D enies P alpitations. D enies S hortness of breath. G astrointestinal: Denies D iarrhea. D enies N ausea. M usculoskeletal: Patient denies m uscle aches. P eripheral Vascular: Patient denies r ed and blue toes. * Medical History: * Surgical History: * Hospitalization/Major Diagno stic Procedure: * Medications: T akingVitamin B12 1000 MCG Tablet Extended Release 1 tablet Orally Once a dayBetamethasone Dipropionate 0.05 % Cream as directed Externally dailyOmeprazole 20 MG Capsule Delayed Release 1 capsule Orally Once a dayMetoprolol Tartrate 50 MG Tablet 1 tablet Orally Twice a dayAspir-81 81 MG Tablet Delayed Release 1 tablet Orally Once a dayAtorvastatin Calcium 80 MG Tablet TAKE 1 TABLET BY MOUTH EVERY DAY Taking Vitamin B12 1000 MCG Tablet Extended Release 1 tablet Orally Once a dayTaking Betamethasone Dipropionate 0.05 % Cream as directed Externally dailyTaking Omeprazole 20 MG Capsule Delayed Release 1 capsule Orally Once a dayTaking Metoprolol Tartrate 50 MG Tablet 1 tablet Orally Twice a dayTaking Aspir-81 81 MG Tablet Delayed Release 1 tablet Orally Once a dayTaking Atorvastatin Calcium 80 MG Tablet TAKE 1 TABLET BY MOUTH EVERY DAY Not-Taking/PRNLasix 20 MG Tablet 1 tablet Orally Once a dayProAir HFA 108 (90 Base) MCG/ACT Aerosol Solution 2 puffs as needed Inhalation every 4 hrsMedication List reviewed and reconciled with the patientNot-Taking/PRN Lasix 20 MG Tablet 1 tablet Orally Once a dayNot-Taking/PRN ProAir HFA 108 (90 Base) MCG/ACT Aerosol Solution 2 puffs as needed Inhalation every 4 hrsMedication List reviewed and reconciled with the patient * Allergies: N .K.D.A.yes[Allergies Verified] Objective: * Vitals: H t: 70, Wt:268, BMI:38.45, BP:152/66, Repeat BP:120/60 weight is up 6 pounds since 05-06-22. * Examination: G eneral Examination: GENERAL APPEARANCE: alert, well hydrated, in no distress , male. HEAD: normocephalic. SKIN: good turgor. HEART: no murmurs, rubs, gallops, regular rate and rhythm. LUNGS: no wheezes, rales, rhonchi, good air movement, clear to auscultation bilaterally. ABDOMEN: soft, nontender, nondistended, no rebound tenderness, no organomegaly . Assessment: * Assessment: 1. O ld myocardial infarction - I25.2 (Primary) 2 . C oronary atherosclerosis due to lipid rich plaque - I25.83 3 . N on morbid obesity due to excess calories - E66.09 Plan: * Treatment: 2. C oronary atherosclerosis due to lipid rich plaque Continue Atorvastatin Calcium Tablet, 80 MG, TAKE 1 TABLET BY MOUTH EVERY DAY. Notes: no chest pain. on statins, will continue current regiment. 3. N on morbid obesity due to excess calories Notes: advised to diet. * Procedure Codes: * * Sign off status: Completed true * Provider: Maral Coffey MD Date: 0 06/12/2023 Generated for Samira garzon/Meme/Pilyitting on: 02/12/2024 01:38 PM EST History and Physical Notes * HPI (History of Present Illness) Category Sub-Category Detail Notes Category Not es Symptom(s) patient is a 68 yo male here for 6 month follow up visit. Examination Category Sub-Category Detail Notes Category Not es General Examination GENERAL APPEARANCE: alert, w ell hydrated, in no distress , male HEAD: normocephalic HEART: no murmurs, rubs, ga llops, regular rate and rhythm LUNGS: no wheezes, rales, r honchi, good air movement, clear to auscultation bilaterally ABDOMEN: soft, nontender, non distended, no rebound tenderness, no organomegaly SKIN: good turgor
--- OUTSIDE RECORDS SUMMARY | 2023-12-08 02:30 | XMS_ITS ---
Author Organization Gio Coffey MD Address [address] [place], [place] [id number] Care Team Providers Care Photogrammetric Tech Name Role Phone Gio Coffey Primary Care Provider Results Component Value Reference Range Notes Complete Blood Count Auto Di ff Reviewed date:12/08/2023 12:52:36 PM Interpretation: Performing Lab:[facility], [address] [place] [phone] Notes/Report: White Blood Count 6.8 4.8-10.8 X10*3/uL Red Blood Count 4.25 4.60-5.80 X10*6/uL Hemoglobin 13.5 14.0-18.0 g/dl Hematocrit 39.9 42.0-52.0 % Mean Corpuscular Volume 93.9 80.0-98.0 fL Mean Corpuscular Hemoglobin 31.8 27.0-33.0 pg Mean Corpuscular HGB Conc 33.8 31.0-36.0 g/dl Red Cell Distribution Width 12.3 11.0-16.0 % Platelet Count 279 160-400 X10*3/uL Mean Platelet Volume 8.9 9.4-12.4 fL Neutrophils Percent Auto 33.0 45-73 % Imm Gran Pct Auto 0.3 0.0-0.4 % Lymphocytes Percent Auto 44.8 20-40 % Monocytes Percent Auto 13.4 2-11 % Eosinophils Percent Auto 7.5 0-4 % Basophils Percent Auto 1.0 0-2 % NRBC Pct Auto 0.0 0.0-0.2 /100WBC Neutrophils Absolute Auto 2.2 2.0-8.3 x10*3/u L Imm Gran Abs Auto 0.02 0.00-0.03 X10*3/uL Lymphocytes Absolute Auto 3.0 1.2-4.9 X10*3/u L Monocytes Absolute Auto 0.9 0.1-1.2 X10*3/uL Eosinophils Absolute Auto 0.5 0.0-0.4 X10*3/u L Basophils Absolute Auto 0.1 0.0-0.2 X10*3/uL NRBC Abs Auto 0.000 0.0-0.012 X10*3/uL Comprehensive [place]. Panel Fa st Reviewed date:12/08/2023 05:08:18 PM Interpretation: Performing Lab:[facility], [address] [place] [phone] Notes/Report: Sodium 140 135-145 mmol/L Potassium 4.0 3.3-5.1 mmol/L Chloride 106 96-108 mmol/L Carbon Dioxide 26 22-29 mmol/L Anion Gap 12 12-20 Blood Urea Nitrogen 15 9-16 mg/dL Creatinine 1.08 0.5-1.4 mg/dL Estimated Glomerular Filt Rate > 60 NOTE: For -[place] individuals, multiply the result by 1.210. Chronic Kidney Disease: Estimated GFR < 60 mL/min/1.73m2 Severe Kidney Disease: Estimated GFR < 15 mL/min/1.73m2 Glucose Fasting 128 60-99 mg/dL A fasting glucose of 126 mg/dl or greater on more than one occasion is considered diagnostic of diabetes. Calcium 9.9 8.4-10.2 mg/dL Bilirubin Total 0.7 0.0-1.0 mg/dL Aspartate Amino Transferase 46 5-37 U/L Alanine Aminotransferase 42 0-40 U/L Total Protein 7.4 6.5-8.0 g/dL Albumin Level 3.9 3.5-5.0 g/dL Alkaline Phosphatase 85 39-117 U/L Lipid Panel Reviewed date:12/08/2023 05:07:53 PM Interpretation: Performing Lab:[facility], [address] [place] [phone] Notes/Report: Triglycerides 140 <150 mg/dL Desirable Triglyceride: less than 150 mg/dL Borderline High Triglyceride 150-199 mg/dL High Triglyceride: 200-499 mg/dL Very High Triglyceride: greater than or equal to 5OO mg/dL Cholesterol 196 <200 mg/dL Desirable Cholesterol: less than 200 mg/dL Borderline High Cholesterol: 200-239 mg/dL High Cholesterol: greater than 239 mg/dL LDL Cholesterol Calculated 121 <100 mg/dL Desirable LDL: less than 100 mg/dL Near Optimal/Above Optimal LDL: 110-129 mg/dL Borderline High LDL: 130-159 mg/dL High LDL: 160-189 mg/dL Very High LDL: greater than or equal to 190 mg/dL HDL Cholesterol 47 >40 mg/dL Desirable HDL: greater than 40 mg/dL Note: This HDL assay may give artificially low results in patients with liver disease. PSA,Total (Free>4and<10) Reviewed date:12/08/2023 12:51:26 PM Interpretation: Performing Lab:[facility], [address] [place] [phone] Notes/Report: PSA,Total (Free>4and<10) 1.21 0.00-4.00 ng/mL A Free PSA was not performed: The percentage of Free PSA can be used to enhance the differentiation of prostate cancer from benign prostatic disease in subjects whose PSA levels are between 4.0 and 10.0 ng/mL. For subjects whose PSA levels are below 4.0 or above 10.0 ng/mL, the risk of prostate cancer is determined on the basis of the PSA alone. Therefore the % Free PSA is recommended only for those subjects whose PSA levels are between 4.0 and 10.0 ng/mL. PSA methodology: Hopson Alinity i Chemiluminescent Microparticle Immunoassay (CMIA) Microalbumin, Random Reviewed date:12/08/2023 05:08:01 PM Interpretation: Performing Lab:[facility], [address] [place] [phone] Notes/Report: Creatinine Urine 87.03 Microalbumin Urine < 5.0 Microalbum/Creatinine Ratio Ur TNP <30 ug/mg cr Unable to calculate albumin/creatinine ratio due to low microalbumin or creatinine result. Hemoglobin A1c Reviewed date:12/08/2023 12:51:36 PM Interpretation: Performing Lab:[facility], [address] [place] [phone] Notes/Report: Hemoglobin A1c % 5.8 <6.0 % Hemoglobin A1C Reference Range Adults: 4.8 - 6.0 % Non diabetic: < 6.0 % Goal: < 7.0 % Additional Action Suggested: > 8.0 % Note: Hemoglobin A1c results are invalid for patients with abnormal amounts of HbF. Blood transfusions may impact the HbA1c concentration in the patient sample. Estimated Average Glucose 120 eAG = Estimated average glucose which is %A1C expressed as average glucose, using the formula of the K6X-Muyarql Average Glucose study (ADAG), Diabetes Care, Vol.31,#8, Sep. 2007 UA ClnCatch+Micro w/rflx Cul t Reviewed date:12/08/2023 12:49:28 PM Interpretation: Performing Lab:[facility], [address] [place] [phone] Notes/Report: [id number] Urine, Clean Catch Color Urine Yellow Appearance Urine Clear PH 7.5 5.0-9.0 Glucose Urine UA Negative Negative mg/dL Urine Blood Negative Negative Specific [place] - Urine 1.015 1.005-1.025 Urine Protein Negative Neg-Trace mg/dL Urine Ketones Negative Negative mg/dL Nitrite Urine Negative Negative Leukocyte Esterase Urine Negative Negative RBC Urine 0-2 0-2 /HPF WBC Urine 0-5 0-5 /HPF Squamous Epithelial Cell Urine 0-2 0-2 /HPF Bacteria Urine None Seen None Seen Hyaline Casts Urine 0-2 0-2 /LPF REASON FOR VISIT yearly fasting labs Immunizations Vaccine Route Administration Date Status Comme nts Influenza High Dose IM Intramuscular 12/08/2023 Administer ed Encounters Encounter Location Date Provider Diagnosis Gio Coffey MD [address] [place], [place] [id number] 12/08/2023 Gio Coffey Prediabetes R73.09 ; Encounter for immunization Z23 ; Pure hypercholesterolemia E78.00 and Lymphocytosis D72.820 Assessments Encounter Date Diagnosis (ICD Code) Assessment Notes Treatment Notes Treatment Clinical Notes Section Notes 12/08/2023 Prediabetes (ICD-10 - R73.09) 12/08/2023 Encounter for immunization (ICD-10 - Z23) 12/08/2023 Pure hypercholesterolemia (ICD-10 - E78.00) 12/08/2023 Lymphocytosis (ICD-1 0 - D72.820) Plan Of Treatment Next Appt Details Provider Name:Gio Correa ier, 12/19/2024 01:00:00 PM, [address] [facility], [address], [place], [place], [id number], Progress Notes * Vamshi MEJIA ADOB:1955 (69 yo M)Acc No.[id number]:12/08/2023 Progress Note Patient: Vamshi ESTRADA Provider: Maral Coffey MD :1955 A ge:68 Y S ex:Male Date:12/08/2023 Address:[address] [place], [place] [id number] Subjective: * Chief Complaints: * 1 . Yearly fasting labs. * Medical History: Objective: * Vitals: Assessment: * Assessment: 1. E ncounter for immunization - Z23 (Primary) 2 . P rediabetes - R73.09? 3. P ure hypercholesterolemia - E78.00 4 . L ymphocytosis - D72.820 Plan: * Treatment: 2. P ure hypercholesterolemia L AB: Complete Blood Count Auto Diff (Collection Date & Time - 12/08/2023 07:30 AM) L AB: Comprehensive [place]. Panel Fast (Collection Date & Time - 12/08/2023 07:30 AM) L AB: Lipid Panel (Collection Date & Time - 12/08/2023 07:30 AM) L AB: PSA,Total (Free>4and<10) (Collection Date & Time - 12/08/2023 07:30 AM) L AB: Microalbumin, Random (Collection Date & Time - 12/08/2023 07:30 AM) L AB: Hemoglobin A1c (Collection Date & Time - 12/08/2023 07:30 AM) L AB: UA ClnCatch+Micro w/rflx Cult (Collection Date & Time - 12/08/2023 07:30 AM) 3. L ymphocytosis L AB: Complete Blood Count Auto Diff (Collection Date & Time - 12/08/2023 07:30 AM) L AB: Comprehensive [place]. Panel Fast (Collection Date & Time - 12/08/2023 07:30 AM) L AB: Lipid Panel (Collection Date & Time - 12/08/2023 07:30 AM) L AB: PSA,Total (Free>4and<10) (Collection Date & Time - 12/08/2023 07:30 AM) L AB: Microalbumin, Random (Collection Date & Time - 12/08/2023 07:30 AM) L AB: Hemoglobin A1c (Collection Date & Time - 12/08/2023 07:30 AM) L AB: UA ClnCatch+Micro w/rflx Cult (Collection Date & Time - 12/08/2023 07:30 AM) * Immunizations: Influenza High Dose : 0.5 mL (Dose No:1) (Route: Intramuscular) given by Sayra Cantu , Office Staff on Left Deltoid * Procedure Codes: 9 0662 FLU VACC PRSV FREE INC ANTIG, G0008 ADMN FLU VAC NO FEE SCHED SAME DAY, 37492 VENIPUNCT, ROUTINE* * * The named appointment provid er may or may not be the originator of this progress note, and it is not deemed complete until electronically signed by the appointment provider. Sign off status: Pending * Provider: Maral Coffey MD Date: 02/06/2023 Generated for Samira garzon/Meme/Jacinta on: 02/12/2024 01:38 PM EST
--- OUTSIDE RECORDS SUMMARY | 2023-12-15 08:30 | XMS_ITS ---
Author Organization Gio Coffey MD Address [address] [place], [place] [id number] Care Team Providers Care Retail Special Event Associate Name Role Phone Gio Coffey Primary Care Provider [phone] Allergies No Known Allergies Results Component Value Reference Range Notes Occult Blood, Stool, Guaiac Reviewed date:12/15/2023 02:17:27 PM Interpretation:Negative Performing Lab: Notes/Report: Negative Occult Blood, Stool, Guaiac Neg REASON FOR VISIT review labs Medications Medication SIG (Take, Route, Frequency, Duration) Notes Start Date End Date Status Atorvastatin Calcium 80 MG TAKE 1 TABLET BY MOUTH EVERY DAY Active Lasix 20 MG 1 tablet Orally Once a day for 30 day(s) 09/21/2015 Not-Taking Omeprazole 20 MG 1 capsule Orally Onc e a day Active ProAir HFA 108 (90 Base) MCG/ACT 2 puffs as needed Inhalation every 4 hrs for 30 days 07/13/2015 Not-Taking Aspir-81 81 MG 1 tablet Orally Once a day Active Betamethasone Dipropionate 0.05 % as directed Externally daily for 90 days 09/03/2010 Active Vitamin B12 1000 MCG 1 tablet Orally Onc e a day for 30 day(s) Active Metoprolol Tartrate 50 MG 1 tablet Orall y Twice a day Active Social History Tobacco Use: Social History Observation Description Date Details (start date - stop date) Former Smoker NA - NA Tobacco Use/Smoking Question Answer Notes Patient is a former smoker How long has it been since y ou last smoked? > 10 years Additional Findings: Tobacco Non-User Fo rmer smoker, currently using no form of tobacco Alcohol Screen Question Answer Notes Did you have a drink contain ing alcohol in the past year? Yes How often did you have a dri nk containing alcohol in the past year? 4 or more times a week (4 points) How many drinks did you have on a typical day when you were drinking in the past year? 1 or 2 drinks (0 point) How often did you have 6 or more drinks on one occasion in the past year? Never (0 point) Points 4 Interpretation Positive Problems Problem Type SNOMED Code ICD Code Onset Dates Problem Status W/U Status Risk Notes Problem [id number] Enlarged testicle (N50.89) Active confirmed Vital Signs Blood pressure systolic 132 mm Hg 12/15/19 24 Blood pressure diastolic 60 mm Hg 024 Height 70 in 12/15/2023 Weight 270 lbs 12/15/2023 BMI 38.74 kg/m2 12/15/2023 weight is up 2 pounds since 06-12-23 Encounters Encounter Location Date Provider Diagnosis Gio Coffey MD [address] [place] [address] [address] [place], [place] [phone] 12/15/2023 Gio Coffey Old myocardial infarction I25.2 ; Coronary atherosclerosis due to lipid rich plaque I25.83 ; History of melanoma Z85.820 ; Enlarged testicle N50.89 ; Rib pain R07.81 ; Prediabetes R73.09 ; Pure hypercholesterolemia E78.00 ; GERD (gastroesophageal reflux disease) K21.9 ; Colon cancer screening Z12.11 and Depression screening Z13.31 Assessments Encounter Date Diagnosis (ICD Code) Assessment Notes Treatment Notes Treatment Clinical Notes Section Notes 12/15/2023 Old myocardial infarction (ICD-10 - I25.2) doing well. no complaints, followed by cardiology 12/15/2023 Coronary atheroscler osis due to lipid rich plaque (ICD-10 - I25.83) had negative stress and echo recently, followed by cardiology 12/15/2023 History of melanoma (ICD-10 - Z85.820) no sign of recurrence 12/15/2023 Enlarged testicle (ICD-10 - N50.89) has been that way his entire life 12/15/2023 Rib pain (ICD-10 - R07.81) when he moves a certain way gets pain in both sides in ribs 12/15/2023 Prediabetes (ICD-10 - R73.09) stable, no need for medication at this time 12/15/2023 Pure hypercholesterolemia (ICD-10 - E78.00) stable, will contonue current regiment 12/15/2023 GERD (gastroesophage al reflux disease) (ICD-10 - K21.9) doing well, will contoinue current regiment 12/15/2023 Colon cancer screeni ng (ICD-10 - Z12.11) guaiac negative 12/15/2023 Depression screening (ICD-10 - Z13.31) negative screen Plan Of Treatment Medication Medication Name Sig Start Date Stop Date Notes Atorvastatin Calcium 80 MG TAKE 1 TABLET BY MOUTH EVERY DAY Omeprazole 20 MG 1 capsule Orally Once a day Treatment Notes Assessment Notes Old myocardial infarction doing well. no complaints, followed by cardiology Coronary atherosclerosis due to lipid rich plaque had negative stress and echo recently, followed by cardiology History of melanoma no sign of recurrenc e Enlarged testicle has been that way hi s entire life Rib pain when he moves a cert ain way gets pain in both sides in ribs Prediabetes stable, no need for medication at this time Pure hypercholesterolemia stable, will c ontonue current regiment GERD (gastroesophageal reflux disease) d oing well, will contoinue current regiment Colon cancer screening guaiac negative Depression screening negative screen Next Appt Details Follow Up: 6 Months, Reason: Provider Name:Gio Correa iejennifer, 12/19/2024 01:00:00 PM, [address] [place] [address], [address], [place], [place], [phone], Progress Notes * Vamshi MEJIA ADOB:1955 (68 yo M)Acc No.[id number]:12/15/2023 Patient: Vamshi Desai Provider: Maral Coffey MD :1955 A ge:68 Y S ex:Male Date:12/15/2023 Address:[address] [place] [address], [id number] Subjective: * Chief Complaints: * R eview labs * HPI: D epression Screening: PHQ-9 L ittle interest or pleasure in doing things N ot at all, F eeling down, depressed, or hopeless N ot at all, T rouble falling or staying asleep, or sleeping too much N ot at all, F eeling tired or having little energy N ot at all, P oor appetite or overeating N ot at all, F eeling bad about yourself or that you are a failure, or have let yourself or your family down N ot at all, T rouble concentrating on things, such as reading the newspaper or watching television N ot at all, M oving or speaking so slowly that other people could have noticed; or the opposite, being so fidgety or restless that you have been moving around a lot more than usual N ot at all, T houghts that you would be better off or of hurting yourself in some way N ot at all, T otal Score 0 . I nterpretation and Intervention D epression Screening Findings N egative, F ollow-Up for Depression : review of PHQ-9 found negative result, no follow-up needed. C ommunication Needs: Communication Needs D oes the patient have a hearing impairment N o, D oes the patient have a vision impairment? Y es, I f yes, what is the vision impairment? G lasses, D oes the patient have a cognition impairment? N o. F all Risk: History H ave you had any falls with injury in the past year? N o, H ave you had two or more falls in the past year? N o. S SANDRA Questions: SDOH Questions I n the past year have you been worried about losing housing? N o, I n the past year have you or any family members you live with been unable to get any of the following when it was really needed? Check all that apply: N one. S ymptom(s): patient is a 68 yo male here for review of recent labs and follow up of chronic issues, has seen cardiology and had stress and echo. * ROS: G eneral/Constitutional: Patient denies f atigue , headache. C hange in appetite?denies. C hills d enies. F ever d enies. O phthalmologic: Blurred vision d enies. D ischarge d enies. P ain d enies. E NT: Patient denies d ecreased sense of smell , any loss of taste , sore throat. D ecreased hearing d enies. S ore throat d enies. S wollen glands d enies. E ndocrine: Cold intolerance d enies. E xcessive thirst d enies. H eat intolerance d enies. W eight loss d enies. R espiratory: Cough d enies. S hortness of breath at rest d enies. S hortness of breath with exertion d enies. W heezing d enies. C ardiovascular: Chest pain at rest d enies. C hest pain with exertion?denies. I rregular heartbeat d enies. S hortness of breath d enies. ? G astrointestinal: Abdominal pain d enies. C hange in bowel habits d enies. D iarrhea d enies. N ausea d enies. R ectal bleeding d enies. V omiting d enies . G enitourinary: Blood in urine d enies. D ifficulty urinating d enies. F requent urination d enies. M usculoskeletal: Patient denies m uscle aches. P ainful joints d enies. W eakness d enies. P eripheral Vascular: Patient denies r ed and blue toes. S kin: Dry skin d enies. I tching d enies. D enies?Mole(s), changes in moles, new moles or any lesions of concern. D enies P hotosensitivity. R anshul d enies. N eurologic: Dizziness d enies. F ainting d enies. H eadache?denies. * Medical History: * Surgical History: * Hospitalization/Major Diagno stic Procedure: * Family History: F ather: 80 yrs, family history unknown . M other: alive 92 yrs. 3 sister(s) . 1 son(s) . . Mother Breast cancer, Denies mental health/substance abuse family history, No pertinent family medical history, Denies mental health/substance abuse family history. * Social History: T obacco Use: T obacco Use/Smoking P atient is a f ormer smoker, H ow long has it been since you last smoked? > 10 years, A dditional Findings: Tobacco Non-User F ormer smoker, currently using no form of tobacco. D rugs/Alcohol: A lcohol Screen D id you have a drink containing alcohol in the past year? Y es, H ow often did you have a drink containing alcohol in the past year? 4 or more times a week (4 points), H ow many drinks did you have on a typical day when you were drinking in the past year? 1 or 2 drinks (0 point), H ow often did you have 6 or more drinks on one occasion in the past year? N ever (0 point), P oints 4 , I nterpretation P ositive. M iscellaneous: C affeine: 2-3 cups per day. Children: yes. no Exercise. Home smoke detector use: yes. Housing: owning. Living with: spouse, family. Marital status: . Occupation: retired. Pets: cats: dogs:1 cat 2 parakeets 1 fish. no Travel outside of the [place]. * Medications: T akingVitamin B12 1000 MCG [...] Verified] Objective: * Vitals: H t: 70, Wt:270, BMI:38.74, BP:132/60 weight is up 2 pounds since 06-12-23. * P ast Orders: L ab:Lipid Panel (Order Date - 12/08/2023) (Collection Date - 12/08/2023) Value Reference Range Triglycerides 140 <150 - mg/dL Cholesterol 196 <200 - mg/dL LDL Cholesterol Calculated 121 H <100 - mg/dL HDL Cholesterol 47 >40 - mg/dL L ab:PSA,Total (Free>4and<10) (Order Date - 12/08/2023) (Collection Date - 12/08/2023) Value Reference Range PSA,Total (Free>4and<10) 1.21 0.00-4.00 - ng/ mL L ab:Microalbumin, Random (Order Date - 12/08/2023) (Collection Date - 12/08/2023) Value Reference Range Creatinine Urine 87.03 - mg/dL Microalbumin Urine < 5.0 - mg/L Microalbum Creatinine Ratio Ur TNP <30 - ug/ mg cr L ab:Hemoglobin A1c (Order Date - 12/08/2023) (Collection Date - 12/08/2023) Value Reference Range Hemoglobin A1c % 5.8 <6.0 - % Estimated Average Glucose 120 - mg/dL L ab:Complete Blood Count Auto Diff (Order Date - 12/08/2023) (Collection Date - 12/08/2023) Value Reference Range White Blood Count 6.8 4.8-10.8 - X10*3/uL Red Blood Count 4.25 L 4.60-5.80 - X10*6/uL Hemoglobin 13.5 L 14.0-18.0 - g/dl Hematocrit 39.9 L 42.0-52.0 - % Mean Corpuscular Volume 93.9 80.0-98.0 - fL Mean Corpuscular Hemoglobin 31.8 27.0-33.0 - pg Mean Corpuscular HGB Conc 33.8 31.0-36.0 - g/ dl Red Cell Distribution Width 12.3 11.0-16.0 - % Platelet Count 279 160-400 - X10*3/uL Mean Platelet Volume 8.9 L 9.4-12.4 - fL Neutrophils Percent Auto 33.0 L 45-73 - % Imm Gran Pct Auto 0.3 0.0-0.4 - % Lymphocytes Percent Auto 44.8 H 20-40 - % Monocytes Percent Auto 13.4 H 2-11 - % Eosinophils Percent Auto 7.5 H 0-4 - % Basophils Percent Auto 1.0 0-2 - % NRBC Pct Auto 0.0 0.0-0.2 - /100WBC Neutrophils Absolute Auto 2.2 2.0-8.3 - x10* 3/uL Imm Gran Abs Auto 0.02 0.00-0.03 - X10*3/uL Lymphocytes Absolute Auto 3.0 1.2-4.9 - X10* 3/uL Monocytes Absolute Auto 0.9 0.1-1.2 - X10*3/ uL Eosinophils Absolute Auto 0.5 H 0.0-0.4 - X10* 3/uL Basophils Absolute Auto 0.1 0.0-0.2 - X10*3/ uL NRBC Abs Auto 0.000 0.0-0.012 - X10*3/uL L ab:UA ClnCatch+Micro w/rflx Cult (Order Date - 12/08/2023) (Collection Date - 12/08/2023) Value Reference Range Color Urine Yellow - Appearance Urine Clear - PH 7.5 5.0-9.0 - Glucose Urine UA Negative Negative - mg/dL Urine Blood Negative Negative - Specific [place] - Urine 1.015 1.005-1.025 - Urine Protein Negative Neg-Trace - mg/dL Urine Ketones Negative Negative - mg/dL Nitrite Urine Negative Negative - Leukocyte Esterase Urine Negative Negative - RBC Urine 0-2 0-2 - /HPF WBC Urine 0-5 0-5 - /HPF Squamous Epithelial Cell Urine 0-2 0-2 - /HP F Bacteria Urine None Seen None Seen - Hyaline Casts Urine 0-2 0-2 - /LPF L ab:Comprehensive [place]. Panel Fast (Order Date - 12/08/2023) (Collection Date - 12/08/2023) Value Reference Range Sodium 140 135-145 - mmol/L Bilirubin Total 0.7 0.0-1.0 - mg/dL Aspartate Amino Transferase 46 H 5-37 - U/L Alanine Aminotransferase 42 H 0-40 - U/L Total Protein 7.4 6.5-8.0 - g/dL Albumin Level 3.9 3.5-5.0 - g/dL Alkaline Phosphatase 85 39-117 - U/L Potassium 4.0 3.3-5.1 - mmol/L Chloride 106 96-108 - mmol/L Carbon Dioxide 26 22-29 - mmol/L Anion Gap 12 12-20 - Blood Urea Nitrogen 15 9-16 - mg/dL Creatinine 1.08 0.5-1.4 - mg/dL Estimated Glomerular Filt Rate > 60 - Glucose Fasting 128 H 60-99 - mg/dL Calcium 9.9 8.4-10.2 - mg/dL * Examination: G eneral Examination: GENERAL APPEARANCE: w ell developed, well nourished, in no acute distress. HEAD: n ormocephalic, atraumatic. EYES: p upils equal, round, reactive to light and accommodation, sclera non-icteric. EARS: n ormal. ORAL CAVITY: m ucosa moist. THROAT: c lear. NECK/THYROID: n benjamín supple, full range of motion, no cervical lymphadenopathy, no bruits. SKIN: w arm and dry, no suspicious lesions. HEART: r egular rate and rhythm, S1, S2 normal, no murmurs.? LUNGS: c lear to auscultation bilaterally. ABDOMEN: s oft, nontender, nondistended, bowel sounds present, normal, no organomegaly , no masses palpable. RECTAL EXAM: n ormal tone, no external hemorrhoids, no masses palpable, prostate normal, stool guaiac negative. MALE GENITOURINARY: u ncircumcised , no penile lesions or discharge , testes descended bilaterally , no testicular mass / rt testical larger than left his entire life. EXTREMITIES: n o clubbing, cyanosis, or edema. NEUROLOGIC: n onfocal, motor strength normal upper and lower extremities, sensory exam intact. Assessment: * Assessment: 1. O ld myocardial infarction - I25.2 (Primary) 2 . C oronary atherosclerosis due to lipid rich plaque - I25.83 3 . H istory of melanoma - Z85.820 4 . E nlarged testicle - N50.89 5 . R ib pain - R07.81 6 . P rediabetes - R73.09 7 . P ure hypercholesterolemia - E78.00 8 . G ERD (gastroesophageal reflux disease) - K21.9 9 . C olon cancer screening - Z12.11 1 0. D epression screening - Z13.31 Plan: * Treatment: 2. C oronary atherosclerosis due to lipid rich plaque Notes: had negative stress and echo recently, followed by cardiology 3. H istory of melanoma Notes: no sign of recurrence 4. E nlarged testicle Notes: has been that way his entire life 5. R ib pain Notes: when he moves a certain way gets pain in both sides in ribs 6. P rediabetes Notes: stable, no need for medication at this time 7. P ure hypercholesterolemia Continue Atorvastatin Calcium Tablet, 80 MG, TAKE 1 TABLET BY MOUTH EVERY DAY. Notes: stable, will contonue current regiment 8. G ERD (gastroesophageal reflux disease) Continue Omeprazole Capsule Delayed Release, 20 MG, 1 capsule, Orally, Once a day. Notes: doing well, will contoinue current regiment 9. C olon cancer screening L AB: Occult Blood, Stool, Guaiac N egative Value Reference Range O ccult Blood, Stool, Guaiac Neg Notes: guaiac negative??10.?Depression screening? Notes: negative screen?? * Procedure Codes: 8 2270 TEST FOR BLOOD, FECES * Preventive Medicine: Counseling: C are goal follow-up plan: Jimmy farias for abnormal BMI provided?Yes, Justus mooney Normal BMI Follow-up Maral cagle encouragement to exercise. * Follow Up: 6 Months * * Sign off status: Completed true * Provider: Maral Coffey MD Date: 02/13/2023 Generated for Samira garzon/Meme/Pilyitting on: 02/12/2024 01:37 PM EST History and Physical Notes * HPI (History of Present Illness) Category Sub-Category Detail Notes Category Not es Symptom(s) patient is a 68 yo male here for review of recent labs and follow up of chronic issues, has seen cardiology and had stress and echo Depression Screening PHQ-9 Little inte rest or pleasure in doing things: Not at all Feeling down, depressed, or hopeless: No t at all Trouble falling or staying asleep, or sl eeping too much: Not at all Feeling tired or having little energy: N ot at all Poor appetite or overeating: Not at all Feeling bad about yourself o r that you are a failure, or have let yourself or your family down: Not at all Trouble concentrating on thi ngs, such as reading the newspaper or watching television: Not at all Moving or speaking so slowly that other people could have noticed; or the opposite, being so fidgety or restless that you have been moving around a lot more than usual: Not at all Thoughts that you would be b mary off or of hurting yourself in some way: Not at all Total Score: 0 Interpretation and Intervention Depression Trevore freddy Findings: Negative Follow-Up for Depression: : review of PH Q-9 found negative result, no follow-up needed SDOH Questions SDOH Questions In the past year have you been worried about losing housing?: No In the past year have you or any family members you live with been unable to get any of the following when it was really needed? Check all that apply:: None Fall Risk History Have you had any falls with injury i n the past year?: No Have you had two or more falls in the st year?: No Communication Needs Communication Needs Does the patient have a hearing impairment: No Does the patient have a vision impairmen t?: Yes If yes, what is the vision impairment?: Glasses Does the patient have a cognition impair ment?: No Examination Category Sub-Category Detail Notes Category Not es General Examination GENERAL APPEARANCE: well dev eloped, well nourished, in no acute distress HEAD: normocephalic, atrau matic EYES: pupils equal, round, reactive to light and accommodation, sclera non-icteric EARS: normal THROAT: clear NECK/THYROID: neck supple, full ra nge of motion, no cervical lymphadenopathy, no bruits HEART: regular rate and rhy thm, S1, S2 normal, no murmurs LUNGS: clear to auscultatio n bilaterally ABDOMEN: soft, nontender, non distended, bowel sounds present, normal, no organomegaly , no masses palpable NEUROLOGIC: nonfocal, motor stre ngth normal upper and lower extremities, sensory exam intact SKIN: warm and dry, no janine picious lesions EXTREMITIES: no clubbing, cyanosi s, or edema MALE GENITOURINARY: uncircumcised , no p enile lesions or discharge , testes descended bilaterally , no testicular mass / rt testical larger than left his entire life RECTAL EXAM: normal tone, no exte rnal hemorrhoids, no masses palpable, prostate normal, stool guaiac negative ORAL CAVITY: mucosa moist
--- OUTSIDE RECORDS SUMMARY | 2024-06-06 02:30 | XMS_ITS ---
Author Organization Gio Coffey MD Address [address] [place], [place] [id number] Care Team Providers Care Java Consultant Name Role Phone Gio Coffey Primary Care Provider [phone] Results Component Value Reference Range Notes Liver Panel Reviewed date:06/06/2024 04:53:56 PM Interpretation: Performing Lab:[facility], [address] [place] [phone] Notes/Report: Bilirubin Total 0.7 0.0-1.0 mg/dL Bilirubin Direct 0.2 0.0-0.5 mg/dL Aspartate Amino Transferase 35 5-37 U/L Alanine Aminotransferase 31 0-40 U/L Total Protein 7.3 6.5-8.0 g/dL Albumin Level 3.9 3.5-5.0 g/dL Alkaline Phosphatase 104 39-117 U/L Lipid Panel with Reflex Reviewed date:06/06/2024 04:56:59 PM Interpretation: Performing Lab:[facility], [address] [place] [phone] Notes/Report: Triglycerides 176 <150 mg/dL Desirable Triglyceride: less than 150 mg/dL Borderline High Triglyceride 150-199 mg/dL High Triglyceride: 200-499 mg/dL Very High Triglyceride: greater than or equal to 5OO mg/dL Cholesterol 175 <200 mg/dL Desirable Cholesterol: less than 200 mg/dL Borderline High Cholesterol: 200-239 mg/dL High Cholesterol: greater than 239 mg/dL LDL Cholesterol Calculated 95 <100 mg/dL Desirable LDL: less than 100 mg/dL Near Optimal/Above Optimal LDL: 110-129 mg/dL Borderline High LDL: 130-159 mg/dL High LDL: 160-189 mg/dL Very High LDL: greater than or equal to 190 mg/dL HDL Cholesterol 45 >40 mg/dL Desirable HDL: greater than 40 mg/dL Note: This HDL assay may give artificially low results in patients with liver disease. REASON FOR VISIT fasting lipids Encounters Encounter Location Date Provider Diagnosis Gio Coffey MD [address] [place] [phone] 06/06/2024 Gio Coffey Pure hypercholestero lemia E78.00 Assessments Encounter Date Diagnosis (ICD Code) Assessment Notes Treatment Notes Treatment Clinical Notes Section Notes 06/06/2024 Pure hypercholesterolemia (ICD-10 - E78.00) Plan Of Treatment Next Appt Details Provider Name:Gio Correa ier, 12/19/2024 01:00:00 PM, [address], [address] [facility], [place], [place], [phone], Progress Notes * Vamshi MEJIA ADOB:1955 (69 yo M)Acc No.[id number]:06/06/2024 Progress Note Patient: Vamshi ESTRADA Provider: Maral Coffey MD :1955 A ge:69 Y S ex:Male Date:06/06/2024 Address:[address] [place], [place] [phone] Subjective: * Chief Complaints: * 1 . Fasting lipids. * Medical History: Objective: * Vitals: Assessment: * Assessment: 1. P ure hypercholesterolemia - E78.00 (Primary) Plan: * Treatment: * Procedure Codes: 3 6415 VENIPUNCT, ROUTINE* * * The named appointment provid er may or may not be the originator of this progress note, and it is not deemed complete until electronically signed by the appointment provider. Sign off status: Pending * Provider: Maral Coffey MD Date: 0 06/06/2024 Generated for Samira garzon/Meme/Jacinta on: 1 02/12/2024 01:38 PM EST
--- OUTSIDE RECORDS SUMMARY | 2024-06-13 05:15 | XMS_ITS ---
Author Organization Gio Coffey MD Address [address] [place], [place] [id number] Care Team Providers Care Dramatic Art Teacher Name Role Phone Gio Coffey Primary Care Provider [phone] Allergies No Known Allergies REASON FOR VISIT 6 month/ change to due patient is sick with a head cold c/o fatigue, sinus headache sore throat, productive cough, congestion diarrhea x 5 days, Video [phone], had an old test and tested positive Medications Medication SIG (Take, Route, Frequency, Duration) Notes Start Date End Date Status Omeprazole 20 MG 1 capsule Orally Onc e a day Active Aspir-81 81 MG 1 tablet Orally Once a day Active Lasix 20 MG 1 tablet Orally Once a day for 30 day(s) 09/21/2015 Not-Taking Atorvastatin Calcium 80 MG TAKE 1 TABLET BY MOUTH EVERY DAY Active ProAir HFA 108 (90 Base) MCG/ACT 2 puffs as needed Inhalation every 4 hrs for 30 days 07/13/2015 Not-Taking Metoprolol Tartrate 50 MG 1 tablet Orall y Twice a day Active Betamethasone Dipropionate 0.05 % as directed Externally daily for 90 days 09/03/2010 Active Vitamin B12 1000 MCG 1 tablet Orally Onc e a day for 30 day(s) Active Paxlovid (300/100) 20 x 150 MG & 10 x 100MG 3 tablets Orally Twice a day for 5 day(s) 06/13/2024 Active Vital Signs Height 70 in 06/13/2024 Weight 250 lbs 06/13/2024 BMI 35.87 kg/m2 06/13/2024 weight is 250 at home no tem p BP not taken Encounters Encounter Location Date Provider Diagnosis Gio Coffey MD [address] [place] [address] [place] [phone] 06/13/2024 Gio Coffey COVID-19 U07.1 Assessments Encounter Date Diagnosis (ICD Code) Assessment Notes Treatment Notes Treatment Clinical Notes Section Notes 06/13/2024 COVID-19 (ICD-10 - U07.1) Plan Of Treatment Medication Medication Name Sig Start Date Stop Date Notes Paxlovid (300/100) 20 x 150 MG & 10 x 100MG 3 tablets Orally Twice a day for 5 day(s) 06/13/2024 Next Appt Details Provider Name:Gio Correa ier, 12/19/2024 01:00:00 PM, [address] [place] [address], Suite [facility], [place], [place], [phone], Progress Notes * Vamshi MEJIA ADOB:1955 (69 yo M)Acc No.[id number]:06/13/2024 Patient: Vamshi ESTRADA Provider: Maral Coffey MD :1955 A ge:69 Y S ex:Male Date:06/13/2024 Address:[address] [place], [place] [phone] Subjective: * Chief Complaints: * 6 month/ change to due patient is sick with a head cold c/o fatigue, sinus headache sore throat, productive cough, congestion diarrhea x 5 daysVideo [phone] an old test and tested positive * HPI: S ymptom(s): Telehealth L ocation of provider rendering services: [address] [facility], [address], L ocation of patient: a t address listed in demographics for today's visit, P atient identification confirmed using: JAJA David ame, T elehealth method: V ideo conference where patient is visible to the provider of care, C onsent: P atient verbally consented to treatment, Patient verbally consented to billing insurance company, Patient informed of any privacy concerns related to method of visit, Ruddy lucero time spend talking with patient (minutes) 2 1. patient is a 69 yo male here for 6 month follow up visit/ his went to get anouther test and he will do the visit after that. * ROS: G eneral/Constitutional: Denies C hills. A dmits F atigue. D enies F ever. A dmits H eadache. E NT: Denies S ore throat. R espiratory: Admits Jimmy ough. D enies S hortness of breath at rest. D enies S hortness of breath with exertion. A dmits S putum production. G astrointestinal: Admits Lizbet iarrhea. D enies N ausea. * Medical History: * Surgical History: * Hospitalization/Major Diagno stic Procedure: * Medications: T akingVitamin B12 1000 MCG Tablet Extended Release 1 tablet Orally Once a day Betamethasone Dipropionate 0.05 % Cream as directed Externally daily Metoprolol Tartrate 50 MG Tablet 1 tablet Orally Twice a day Aspir-81 81 MG Tablet Delayed Release 1 tablet Orally Once a day Omeprazole 20 MG Capsule Delayed Release 1 capsule Orally Once a day Atorvastatin Calcium 80 MG Tablet TAKE 1 TABLET BY MOUTH EVERY DAY Taking Vitamin B12 1000 MCG Tablet Extended Release 1 tablet Orally Once a day Taking Betamethasone Dipropionate 0.05 % Cream as directed Externally daily Taking Metoprolol Tartrate 50 MG Tablet 1 tablet Orally Twice a day Taking Aspir-81 81 MG Tablet Delayed Release 1 tablet Orally Once a day Taking Omeprazole 20 MG Capsule Delayed Release 1 capsule Orally Once a day Taking Atorvastatin Calcium 80 MG Tablet TAKE 1 TABLET BY MOUTH EVERY DAY Not-Taking/PRNLasix 20 MG Tablet 1 tablet Orally Once a day ProAir HFA 108 (90 Base) MCG/ACT Aerosol Solution 2 puffs as needed Inhalation every 4 hrs Medication List reviewed and reconciled with the patientNot-Taking/PRN Lasix 20 MG Tablet 1 tablet Orally Once a day Not- Taking/PRN ProAir HFA 108 (90 Base) MCG/ACT Aerosol Solution 2 puffs as needed Inhalation every 4 hrs Medication List reviewed and reconciled with the patient * Allergies: N .K.D.A.yes[Allergies Verified] Objective: * Vitals: H t: 70, Wt: 250, BMI:35.87, Wt-k.4. weight is 250 at home no temp BP not taken. * Examination: G eneral Examination: GENERAL APPEARANCE: a lert, well hydrated, in no distress.? Assessment: * Assessment: 1. C OVID-19 - U07.1 (Primary) Plan: * Treatment: * Procedure Codes: * * Sign off status: Completed true * Provider: Maral Coffey MD Date: 0 06/13/2024 Generated for Samira garzon/Meme/Jacinta on: 02/12/2024 01:39 PM EST History and Physical Notes * HPI (History of Present Illness) Category Sub-Category Detail Notes Category Not es Symptom(s) Telehealth Location of [facility] rendering services:: [address], [address] patient is a 69 yo male here for 6 month follow up visit/ his went to get anouther test and he will do the visit after that Location of patient:: at address listed in demographics for today's visit Patient identification confirmed using:: Name, Telehealth method:: Video co nference where patient is visible to the provider of care Consent:: Patient verbally c onsented to treatment, Patient verbally consented to billing insurance company, Patient informed of any privacy concerns related to method of visit Total time spend talking with patient (m inutes): 21 Examination Category Sub-Category Detail Notes Category Not es General Examination GENERAL APPEARANCE: alert, w ell hydrated, in no distress
--- OUTSIDE RECORDS SUMMARY | 2024-12-12 02:30 | XMS_ITS ---
Author Organization Gio Coffey MD Address [address] [place], [place] [phone] Care Team Providers Care Clerical Investigator Name Role Phone Gio Coffey Primary Care Provider [phone] Results Component Value Reference Range Notes Complete Blood Count Auto Di ff (Not yet reviewed by provider) Interpretation: Performing Lab:[facility], [address] [place] [phone] Notes/Report: White Blood Count 7.9 4.8-10.8 X10*3/uL Red Blood Count 4.46 4.60-5.80 X10*6/uL Hemoglobin 13.9 14.0-18.0 g/dl Hematocrit 41.9 42.0-52.0 % Mean Corpuscular Volume 93.9 80.0-98.0 fL Mean Corpuscular Hemoglobin 31.2 27.0-33.0 pg Mean Corpuscular HGB Conc 33.2 31.0-36.0 g/dl Red Cell Distribution Width 11.9 11.0-16.0 % Platelet Count 289 160-400 X10*3/uL Mean Platelet Volume 8.8 9.4-12.4 fL Neutrophils Percent Auto 40.8 45-73 % Imm Gran Pct Auto 0.1 0.0-0.4 % Lymphocytes Percent Auto 39.5 20-40 % Monocytes Percent Auto 11.4 2-11 % Eosinophils Percent Auto 7.2 0-4 % Basophils Percent Auto 1.0 0-2 % NRBC Pct Auto 0.0 0.0-0.2 /100WBC Neutrophils Absolute Auto 3.2 2.0-8.3 x10*3/u L Imm Gran Abs Auto 0.01 0.00-0.03 X10*3/uL Lymphocytes Absolute Auto 3.1 1.2-4.9 X10*3/u L Monocytes Absolute Auto 0.9 0.1-1.2 X10*3/uL Eosinophils Absolute Auto 0.6 0.0-0.4 X10*3/u L Basophils Absolute Auto 0.1 0.0-0.2 X10*3/uL NRBC Abs Auto 0.000 0.0-0.012 X10*3/uL UA ClnCatch+Micro w/rflx Cul t (Not yet reviewed by provider) Interpretation: Performing Lab:[address] [phone] Notes/Report: Urine, Clean Catch Color Urine Yellow Appearance Urine Clear PH 7.0 5.0-9.0 Glucose Urine UA Negative Negative mg/dL Urine Blood Negative Negative Specific Howell - Urine 1.020 1.005-1.025 Urine Protein Negative Neg-Trace mg/dL Urine Ketones Negative Negative mg/dL Nitrite Urine Negative Negative Leukocyte Esterase Urine Negative Negative RBC Urine 0-2 0-2 /HPF WBC Urine 0-5 0-5 /HPF Squamous Epithelial Cell Urine 0-2 0-2 /HPF Bacteria Urine None Seen None Seen Hyaline Casts Urine 0-2 0-2 /LPF Lipid Panel Reviewed date:12/12/2024 12:49:52 PM Interpretation: Performing Lab:[address] [phone] Notes/Report: Triglycerides 103 <150 mg/dL Desirable Triglyceride: less than 150 mg/dL Borderline High Triglyceride 150-199 mg/dL High Triglyceride: 200-499 mg/dL Very High Triglyceride: greater than or equal to 5OO mg/dL Cholesterol 131 <200 mg/dL Desirable Cholesterol: less than 200 mg/dL Borderline High Cholesterol: 200-239 mg/dL High Cholesterol: greater than 239 mg/dL LDL Cholesterol Calculated 66 <100 mg/dL Desirable LDL: less than 100 mg/dL Near Optimal/Above Optimal LDL: 110-129 mg/dL Borderline High LDL: 130-159 mg/dL High LDL: 160-189 mg/dL Very High LDL: greater than or equal to 190 mg/dL HDL Cholesterol 45 >40 mg/dL Desirable HDL: greater than 40 mg/dL Note: This HDL assay may give artificially low results in patients with liver disease. PSA,Total (Free>4and<10) Reviewed date:12/12/2024 12:45:13 PM Interpretation: Performing Lab:[facility], [address] [place] [phone] Notes/Report: PSA,Total (Free>4and<10) 1.32 0.00-4.00 ng/mL A Free PSA was not [...] Hopson Alinity i Chemiluminescent Microparticle Immunoassay (CMIA) Hemoglobin A1c Reviewed date:12/12/2024 12:50:20 PM Interpretation: Performing Lab:[facility], [address] [place] [phone] Notes/Report: Hemoglobin A1c % 6.1 <6.0 % Hemoglobin A1C Reference Range Adults: 4.8 - 6.0 % Non diabetic: < 6.0 % Goal: < 7.0 % Additional Action Suggested: > 8.0 % Note: Hemoglobin A1c results are invalid for patients with abnormal amounts of HbF. Blood transfusions may impact the HbA1c concentration in the patient sample. Estimated Average Glucose 128 eAG = Estimated average glucose which is %A1C expressed as average glucose, using the formula of the M2G-Jqdqoos Average Glucose study (ADAG), Diabetes Care, Vol.31,#8, Sep. 2007 REASON FOR VISIT yearly fasting labs Immunizations Vaccine Route Administration Date Status Comme nts Influenza High Dose IM Intramuscular 12/12/2024 Administer ed Encounters Encounter Location Date Provider Diagnosis Gio Coffey MD [address] [place], [place] [phone] 12/12/2024 Gio Coffey Prediabetes R73.09 ; Pure hypercholesterolemia E78.00 ; Lymphocytosis D72.820 and Encounter for administration of vaccine Z23 Assessments Encounter Date Diagnosis (ICD Code) Assessment Notes Treatment Notes Treatment Clinical Notes Section Notes 12/12/2024 Prediabetes (ICD-10 - R73.09) 12/12/2024 Pure hypercholesterolemia (ICD-10 - E78.00) 12/12/2024 Lymphocytosis (ICD-1 0 - D72.820) 12/12/2024 Encounter for administration of vaccine (ICD-10 - Z23) Plan Of Treatment Pending Test Test Name Order Date Complete Blood Count Auto Diff 5 Comprehensive [place]. Panel Fast 5 Microalbumin, Random 12/12/2024 UA ClnCatch+Micro w/rflx Cult 12/12/2024 Next Appt Details Provider Name:Gio Correa ier, 12/19/2024 01:00:00 PM, [address], [address], [place], [place], [phone], Progress Notes * SHUJAGDISHVamshi ADOB:1955 (69 yo M)Acc No.[id number]:12/12/2024 Progress Note Patient: Vamshi ESTRADA Provider: Maral Coffey MD :1955 A ge:69 Y S ex:Male Date:12/12/2024 Address:[address] [place], [place] [phone] Subjective: * Chief Complaints: * 1 . Yearly fasting labs. * Medical History: Objective: * Vitals: Assessment: * Assessment: 1. P rediabetes - R73.09 (Primary) 2 . P ure hypercholesterolemia - E78.00? 3. L ymphocytosis - D72.820 4 . E ncounter for administration of vaccine - Z23 Plan: * Treatment: 2. P ure hypercholesterolemia L AB: Complete Blood Count Auto Diff (Collection Date & Time - 12/12/2024 07:30 AM) L AB: Comprehensive [place]. Panel Fast L AB: Microalbumin, Random L AB: UA ClnCatch+Micro w/rflx Cult (Collection Date & Time - 12/12/2024 07:30 AM) L AB: Lipid Panel (Collection Date & Time - 12/12/2024 07:30 AM) L AB: PSA,Total (Free>4and<10) (Collection Date & Time - 12/12/2024 07:30 AM) L AB: Hemoglobin A1c (Collection Date & Time - 12/12/2024 07:30 AM) 3. L ymphocytosis L AB: Complete Blood Count Auto Diff (Collection Date & Time - 12/12/2024 07:30 AM) L AB: Comprehensive [place]. Panel Fast L AB: Microalbumin, Random L AB: UA ClnCatch+Micro w/rflx Cult (Collection Date & Time - 12/12/2024 07:30 AM) L AB: Lipid Panel (Collection Date & Time - 12/12/2024 07:30 AM) L AB: PSA,Total (Free>4and<10) (Collection Date & Time - 12/12/2024 07:30 AM) L AB: Hemoglobin A1c (Collection Date & Time - 12/12/2024 07:30 AM) * Immunizations: Influenza High Dose : 0.5 mL (Dose No:1) (Route: Intramuscular) given by Sayra Cantu , Office Staff on Left Deltoid * Procedure Codes: 3 6415 VENIPUNCT, ROUTINE*, 70519 FLU VACC PRSV FREE INC ANTIG, G0008 ADMN FLU VAC NO FEE SCHED SAME DAY * * The named appointment provid er may or may not be the originator of this progress note, and it is not deemed complete until electronically signed by the appointment provider. Sign off status: Pending * Provider: Maral Coffey MD Date: 02/12/2024 Generated for Samira garzon/Meme/Jacinta on: 02/12/2024 01:38 PM EST
[2024-12-12 11:08] LABS: MANUAL DIFF FLAG NO
[2024-12-12 11:39] LABS: Hematocrit 41.9 % (42.0-52.0); Hemoglobin 13.9 g/dl (14.0-18.0); Imm Gran Abs Auto 0.01 X10*3/uL (0.00-0.03); Imm Gran Pct Auto 0.1 % (0.0-0.4); Lymphocytes Absolute Auto 3.1 X10*3/uL (1.2-4.9); Mean Corpuscular HGB Conc 33.2 g/dl (31.0-36.0); Mean Corpuscular Hemoglobin 31.2 pg (27.0-33.0); Mean Corpuscular Volume 93.9 fL (80.0-98.0); NRBC Abs Auto 0.000 X10*3/uL (0.0-0.012); NRBC Pct Auto 0.0 /100WBC (0.0-0.2); Platelet Count 289 X10*3/uL (160-400); Red Blood Count 4.46 X10*6/uL (4.60-5.80); White Blood Count 7.9 X10*3/uL (4.8-10.8)
[2024-12-12 11:45] LABS: Appearance Urine Clear; Glucose Urine UA Negative (Negative); PH 7.0 (5.0-9.0); Specific Gravity - Urine 1.020 (1.005-1.025)
[2024-12-12 11:57] LABS: Alanine Aminotransferase 31 U/L (0-40); Albumin Level 4.2 g/dL (3.5-5.0); Alkaline Phosphatase 103 U/L (39-117); Anion Gap 12 (12-20); Aspartate Amino Transferase 41 U/L (5-37); Blood Urea Nitrogen 15 mg/dL (9-16); Calcium 9.0 mg/dL (8.4-10.2); Carbon Dioxide 26 mmol/L (22-29); Chloride 106 mmol/L (96-108); Cholesterol 131 mg/dL (<200); Estimated Glomerular Filt Rate 58; HDL Cholesterol 45 mg/dL (>40); Potassium 4.3 mmol/L (3.3-5.1); Sodium 140 mmol/L (135-145); Total Protein 7.3 g/dL (6.5-8.0); Triglycerides 103 mg/dL (<150)
[2024-12-12 12:09] LABS: PSA,Total (Free>4and<10) 1.32 ng/mL (0.00-4.00)
--- OUTSIDE RECORDS SUMMARY | 2024-12-12 13:38 | XMS_ITS | Encounter Summary ---
Author Organization [facility] Address [address] [facility] [address] [place] [address] Phone Care Team Providers Care Trainer Name Role Phone Gio Coffey MD Primary Care Provider Encounter Details Date Type Department Care Team (Latest Contact Info) Description 11/03/2017 Transcribe Orders [facility] [address] [place] [address] [address]rd Floor, [address] [place] [phone] Devan Martinez MD [address] [place] [address] [phone] [email or web address] Venous insufficiency (Primary Dx) Social History Tobacco Use Types Packs/Day Years Used Date Smoking Tobacco: Former Cigarettes Q uit: 08/2003 Smokeless Tobacco: Never Sex and Gender Information Value Date Recorded Sex Assigned at Not on file Legal Sex Male 9:58 PM EDT Gender Identity Not on file Sexual Orientation Not on file documented as of this encounter Plan of Treatment Upcoming Encounters Date Type Department Care Team (Late st Contact Info) Description 04/28/2025 1:40 PM EDT Office Visit [facility] [address] [place] [address] [address] Floor, [address] [place] [phone] Devan Martinez MD [address] [place] [address], [address] [phone] documented as of this encounter Visit Diagnoses Diagnosis Venous insufficiency- Primary Unspecified venous (peripheral) insufficiency documented in this encounter Care Teams Trainer Relationship Specialty Start Date End Date Gio Coffey MD [address] [place] [address] Dr Dobb[place], [place] [address] PCP - General 11/21/16 documented as of this encounter Additional Source Comments The information contained in this document represents components of the legal health record. It is not the complete legal health record.[facility]
--- OUTSIDE RECORDS SUMMARY | 2024-12-12 13:38 | XMS_ITS | Encounter Summary ---
Author Organization [facility] Address [address] [facility] [address] [place] [phone] Phone Care Team Providers Care Mammography Technologist Name Role Phone Gio Coffey MD Primary Care Provider Encounter Details Date Type Department Care Team (Late st Contact Info) Description 10/30/2023 Procedure Pass [facility] [address] [place] [address] Social History Tobacco Use Types Packs/Day Years Used Date Smoking Tobacco: Former Cigarettes Q uit: 08/2003 Smokeless Tobacco: Never Education Answer Date Recorded Are you interested in more education? Not on pilar e 06/03/2022 Are you concerned about learning? Not on file 06/03/2022 No 06/03/2022 No 06/03/2022 Digital Access Answer Date Recorded No 07/04/2022 No 07/04/2022 Reliable internet access at home? Not on file 07/04/2022 Device with a working camera? Not on file Sex and Gender Information Value Date Recorded Sex Assigned at Not on file Legal Sex Male 9:58 PM EDT Gender Identity Not on file Sexual Orientation Not on file documented as of this encounter Plan of Treatment Upcoming Encounters Date Type Department Care Team (Late st Contact Info) Description 04/28/2025 1:40 PM EDT Office Visit [facility] [address] [place] [address] Dr [address] Floor, [address] [place] [address] Devan Martinez MD [address] [facility], [address] [place] [phone] [email or web address] documented as of this encounter Visit Diagnoses Not on filedocumented in this encounter Care Teams Mammography Technologist Relationship Specialty Start Date End Date Gio Coffey MD [address] [place] [address] [place] [address] PCP - General 11/21/16 documented as of this encounter Additional Source Comments The information contained in this document represents components of the legal health record. It is not the complete legal health record.[facility]
--- OUTSIDE RECORDS SUMMARY | 2024-12-12 13:39 | XMS_ITS | Clinical Summary ---
Author Organization [facility] Address [address] [place] [phone] Phone Care Team Providers Care Cafeteria Supervisor Name Role Phone Gio Coffey MD Primary Care Provider Allergies No known active allergies Medications aspirin 81 MG EC tablet 1 tablet Active atorvastatin (LIPITOR) 80 MG tablet Take 80 mg by mouth daily. Active omeprazole (PRILOSEC) 20 mg TbEC Take 20 mg by mouth daily before breakfast. Active nitroglycerin (NITROSTAT) 0.[address] 1 UNDER THE TONGUE EVERY 5 MINS NEEDED FOR CHEST PAIN 50 tablet 5 02/17/19 23 Active ketoconazole 2 % cream APPLY TO RASH IN THE GROIN AREA TWICE DAILY UNTIL CLEAR 08/26/19 23 Active cyanocobalamin, vitamin B-12, 100 MCG tablet Take 100 mcg by mouth daily. Active tacrolimus (PROTOPIC) 0.03 % ointment APPLY TO ITCHY RASH ON THE GROIN FOR MAINTENANCE AND AVOIDANCE OF STEROID SIDE EFFECTS 09/18/19 25 Active triamcinolone acetonide 0.5 % cream APPLY SPARINGLY TO ITCHY SKIN TWICE A DAY FOR 1-2 WEEKS THEN STOP AND SWITCH TO TACROLIMUS DIRECTED 09/17/19 25 Active ezetimibe (ZETIA) 10 mg tablet Take 1 tablet (10 mg total) by mouth daily. 90 tablet 5 10/29/19 25 Active metoprolol tartrate (LOPRESSOR) 50 MG tabletIndicatio ns:Essential hypertension TAKE 1 TABLET BY MOUTH TWICE DAILY 180 tablet 3 11/14/19 25 Active metoprolol tartrate (LOPRESSOR) 50 MG tabletIndicatio ns:Essential hypertension take 1 tablet by mouth twice daily 180 tablet 3 10/04/19 24 025 Discontinued Active Problems Problem Noted Date Diagnosed Date Coronary artery disease 03/01/2017 Assessment & Plan (04/26/2024 10:24 AM EDT): Currently denying any symptoms concerning for angina He had an exercise stress test back in November which was completely normal. Is able to exercise for 6: 41 minutes on a Jose protocol with good functional capacity. He does have a prescription for nitroglycerin to be used as needed, he has not required this Continue aspirin 81 mg daily Continue atorvastatin 80 mg daily Requesting most recent lipid profile from PCP office Assessment & Plan (10/27/2021 11:24 AM EDT): Continues to be asymptomatic. He will continue on aspirin 81 mg daily lifelong, atorvastatin 80 mg daily, Toprol 50 mg daily. We will continue to optimize his cardiac risk factors. He tells me his PCP follows his lipid panel. Assessment & Plan (01/02/2018 2:38 PM EST): He has a history of CAD with stenting of his RCA in 2009. We will continue to optimize his risk factors. Continue aspirin lifelong. He is on a high intensity statin. EKG today shows normal sinus rhythm, inferior Q waves, no evidence of ischemia. He is not complaining of chest pain or any other symptoms that are concerning for ischemia. Follow-up with Dr. Martinez has been arranged for the fall. Assessment & Plan (03/01/2017 9:53 AM EST): His a history of coronary artery disease with stenting of his RCA in 2009. 2017 he had an unremarkable echocardiogram and a normal treadmill stress test. He should remain on aspirin lifelong we will continue to optimize his other cardiac risk factors. Edema 03/01/2017 Essential hypertension 03/01/2017 Assessment & Plan (04/26/2024 10:21 AM EDT): Blood pressure well-controlled here in the office today on current medications which will be continued without change. He does not monitor his blood pressure at home. I did encourage him to start engaging in regular physical exercise. Goal 30 minutes of moderate intensity exercise most days of the week Assessment & Plan (10/27/2021 11:25 AM EDT): He does not check his blood pressures at home and is initially elevated in the 140 systolic. I did recheck him and got 130/80. He will continue on metoprolol 50 mg daily. He tells me he already follows a low-sodium diet. He does not exercise and he is encouraged to start doing this. Assessment & Plan (01/02/2018 2:38 PM EST): Blood pressure today is normal. Continue current management. Assessment & Plan (03/01/2017 9:54 AM EST): His blood pressures well controlled on the current medications. Hypercholesteremia 03/01/2017 Assessment & Plan (10/27/2021 11:25 AM EDT): Continue atorvastatin 80 mg daily. Followed by PCP Assessment & Plan (03/01/2017 9:54 AM EST): Continue atorvastatin 80 mg daily. Shortness of breath 03/01/2017 Assessment & Plan (04/26/2024 10:22 AM EDT): This is primarily due to his obesity and sedentary lifestyle, he has been gaining weight. Encouraged him to start incorporating physical activity into his daily life. He also needs to decrease caloric intake of which he is well aware. Recent echocardiogram and exercise stress test were reviewed which were both reassuring Assessment & Plan (03/01/2017 9:54 AM EST): This is primarily from his obesity and he is fairly sedentary. I encouraged him to remain physically active. Varicose veins of both lower extremities 018 Assessment & Plan (01/02/2018 2:38 PM EST): He had a right greater saphenous vein ablation on November 27. He had an ultrasound done 1-2 weeks following the ablation at our [place] office. The ablation was successful as of that time. He will have a 3-month post ablation ultrasound done in February. He is not eager to have his left leg done. He may consider in the future if his symptoms worsen. For now he is happy with his current status. Assessment & Plan (03/01/2017 9:55 AM EST): He does have significant venous insufficiency with edema with skin changes on the right and varicose veins in the right leg. CE AP class 4a. I discussed management options with him. As he is not overly symptomatic at this time, I recommended walking elevation and compression. He does not like compression socks but I recommended he try just wearing knee-high socks to see if this improves the swelling. If the some swelling gets worse, or he starts to develop achiness or heaviness in the legs and we could reconsider right GSP ablation. I like to get a repeat venous duplex in August and I'll follow-up with him after that is done. Encounters Date Type Department Care Team Description 11/10/2024 Refill [facility] [address], [address] [place] [address] Devan Martinez MD Medication Refill 10/28/2024 8:40 AM EDT Office Visit [facility] [address], [address] [place] [address] Devan Martinez MD Coronary artery disease involving [place] coronary artery of [place] heart without angina pectoris (Primary Dx); Essential hypertension; Varicose veins of both lower extremities with inflammation; Shortness of breath; Hypercholesteremia from Last 3 Months Social History Tobacco Use Types Packs/Day Years Used Date Smoking Tobacco: Former Cigarettes Q uit: 08/2003 Smokeless Tobacco: Never Tobacco Cessation:Counseling Given: Not Answered Education Answer Date Recorded Are you interested [...] on file Sexual Orientation Not on file Last Filed Vital Signs Vital Sign Reading Time Taken Comments Blood Pressure 132/84 10/28/2024 8:35 AM EDT Pulse 57 10/28/2024 8:35 AM EDT Temperature - - Respiratory Rate - - Oxygen Saturation 97% 04/26/2024 9:57 AM EDT Inhaled Oxygen Concentration - - Weight 122.9 kg (271 lb) 10/28/2024 8:35 AM EDT Height 177.8 cm (5' 10 ) 10/28/2024 8:35 AM EDT Body Mass Index 38.88 10/28/2024 8:35 AM EDT Plan of Treatment Upcoming Encounters Date Type Department Care Team (Late st Contact Info) Description 04/28/2025 1:40 PM EDT Office Visit [facility] [address] [place] [address] [address] Floor, [address] [place] [address] Devan Martinez MD [address] [place] [address], [address] [place] [address] Health Maintenance Due Date Last Done Comments DEPRESSION SCREENING 1965 HEPATITIS C SCREENING 1971 COLOGUARD 1998 COLONOSCOPY 1998 COLORECTAL CANCER SCREENING 1998 FIT TEST 1998 FOBT 1998 SIGMOIDOSCOPY 1998 VIRTUAL COLONOSCOPY 1998 PNEUMOCOCCAL VACCINES (50+ y ears) (1 of 1 - PCV) 2003 ZOSTER VACCINES (1 of 2) 2003 ABDOMINAL AORTIC ANEURYSM (A AA) SCREENING 2018 INFLUENZA VACCINE (#1) 2024 11/08/2019 COVID-19 VACCINE (2 - 2024-2 6 season) 2024 05/15/2020 BLOOD PRESSURE 04/27/2025 10/28/2024 SMOKING Hx and SMOKELESS TOB ACCO SCREENING 10/28/2025 10/28/2024 Adult Td,Tdap Booster 11/09/2027 11/08/2017 RSV VACCINE (1 - 1-dose 75+ series) 01/27/2028 HEPATITIS A VACCINES Aged Out No long er eligible based on patient's age to complete this topic HIB VACCINES Aged Out No longer eligi ble based on patient's age to complete this topic MENINGOCOCCAL VACCINES (ACWY) Aged Out No longer eligible based on patient's age to complete this topic MENINGOCOCCAL VACCINES (B) Aged Out N o longer eligible based on patient's age to complete this topic Medical Devices Not on file Insurance MEDICARE PART A & B [facility] MEDEX SUPPLEMENT MEDICARE PART A & B [employer] MED[employer] SUPPLEMENT MEDICARE PART A & B [employer] MED[employer] SUPPLEMENT MEDICARE PART A & B [employer] CROSS MEDEX SUPPLEMENT MEDICARE PART A & B [employer] MED[employer] SUPPLEMENT MEDICARE PART A & B [employer] SUPPLEMENT MEDICARE PART A & B [employer] SUPPLEMENT MEDICARE PART A & B [employer] CROSS MEDEX SUPPLEMENT MEDICARE PART A & B [employer]EX SUPPLEMENT Care Teams Cafeteria Supervisor Relationship Specialty Start Date End Date Gio Coffey MD [address] [place] [address] [place] [address] PCP - General 11/21/16 Additional Source Comments The information contained in this document represents components of the legal health record. It is not the complete legal health record.[facility]
--- OUTSIDE RECORDS SUMMARY | 2024-12-12 13:39 | XMS_ITS | Patient Health Record ---
Author Organization Gio Coffey MD Address [address] [place], [place] [id number] Care Team Providers Care Mid Level Java Developer Name Role Phone Gio Coffey Primary Care Provider [phone] Allergies No Known Allergies Results Component Value Reference Range Notes Liver Panel Reviewed date:06/06/2024 04:53:56 PM Interpretation: Performing Lab:[facility], [address] [place] [phone] Notes/Report: Bilirubin Total 0.7 0.0-1.0 mg/dL Bilirubin Direct 0.2 0.0-0.5 mg/dL Aspartate Amino Transferase 35 5-37 U/L Alanine Aminotransferase 31 0-40 U/L Total Protein 7.3 6.5-8.0 g/dL Albumin Level 3.9 3.5-5.0 g/dL Alkaline Phosphatase 104 39-117 U/L Lipid Panel with Reflex Reviewed date:06/06/2024 04:56:59 PM Interpretation: Performing Lab:[facility], [address] [place] [phone] Notes/Report: Triglycerides 176 <150 mg/dL Desirable Triglyceride: [...] low results in patients with liver disease. Complete Blood Count Auto Di ff (Not yet reviewed by provider) Interpretation: Performing Lab:[facility], [address] [place] [phone] Notes/Report: White Blood Count 7.9 4.8-10.8 X10*3/uL [...] (Not yet reviewed by provider) Interpretation: Performing Lab:[address] [phone] Notes/Report: Urine, Clean Catch Color Urine Yellow Appearance Urine Clear PH 7.0 5.0-9.0 Glucose Urine UA Negative Negative mg/dL Urine Blood Negative Negative Specific [place] - Urine 1.020 1.005-1.025 Urine Protein Negative Neg-Trace mg/dL Urine Ketones Negative Negative mg/dL Nitrite Urine Negative Negative Leukocyte Esterase Urine Negative Negative RBC Urine 0-2 0-2 /HPF WBC Urine 0-5 0-5 /HPF Squamous Epithelial Cell Urine 0-2 0-2 /HPF Bacteria Urine None Seen None Seen Hyaline Casts Urine 0-2 0-2 /LPF Lipid Panel Reviewed date:12/12/2024 12:49:52 PM Interpretation: Performing Lab:[address] [phone] Notes/Report: Triglycerides 103 <150 mg/dL Desirable Triglyceride: [...] (Free>4and<10) Reviewed date:12/12/2024 12:45:13 PM Interpretation: Performing Lab:[address] [phone] Notes/Report: PSA,Total (Free>4and<10) 1.32 0.00-4.00 ng/mL A [...] A1c Reviewed date:12/12/2024 12:50:20 PM Interpretation: Performing Lab:[address] [phone] Notes/Report: Hemoglobin A1c % 6.1 <6.0 % [...] average glucose, using the formula of the [id number]-[id number] Average Glucose study (ADAG), Diabetes Care, Vol.31,#8, Sep. 2007 Occult Blood, Stool, Guaiac Reviewed date:12/15/2023 02:17:27 PM Interpretation:Negative Performing Lab: Notes/Report: Negative Occult Blood, Stool, Guaiac Neg Hold Gold Reviewed date:06/06/2024 04:53:38 PM Interpretation: Performing Lab:[address] [phone] Notes/Report: Hold Gold See Note Specimen held untested for 24 hours; Call to request Chemistry testing. Comprehensive Met. Panel (No t yet reviewed by provider) Interpretation: Performing Lab:[address] [phone] Notes/Report: Sodium 140 135-145 mmol/L Potassium 4.3 3.3-5.1 mmol/L Chloride 106 96-108 mmol/L Carbon Dioxide 26 22-29 mmol/L Anion Gap 12 12-20 Blood Urea Nitrogen 15 9-16 mg/dL Creatinine 1.23 0.5-1.4 mg/dL Estimated Glomerular Filt Rate 58 Chronic Kidney Disease: Estimated GFR < 60 mL/min/1.73m2 Severe Kidney Disease: Estimated GFR < 15 mL/min/1.73m2 Glucose Random 128 60-115 mg/dL Calcium 9.0 8.4-10.2 mg/dL Bilirubin Total 0.7 0.0-1.0 mg/dL Aspartate Amino Transferase 41 5-37 U/L Alanine Aminotransferase 31 0-40 U/L Total Protein 7.3 6.5-8.0 g/dL Albumin Level 4.2 3.5-5.0 g/dL Alkaline Phosphatase 103 39-117 U/L Reason For Referral No Information Medications Medication SIG (Take, Route, Frequency, Duration) Notes Start Date End Date Status Atorvastatin Calcium 80 MG TAKE 1 TABLET BY MOUTH EVERY DAY for 90 Active Metoprolol Tartrate 50 MG 1 tablet Orall y Twice a day Active Betamethasone Dipropionate 0.05 % as directed Externally daily for 90 days 09/03/2010 Active Omeprazole 20 MG 1 capsule Orally Onc e a day Active Aspir-81 81 MG 1 tablet Orally Once a day Active Lasix 20 MG 1 tablet Orally Once a day for 30 day(s) 09/21/2015 Not-Taking ProAir HFA 108 (90 Base) MCG/ACT 2 puffs as needed Inhalation every 4 hrs for 30 days 07/13/2015 Not-Taking Vitamin B12 1000 MCG 1 tablet Orally Onc e a day for 30 day(s) Active Paxlovid (300/100) 20 x 150 MG & 10 x 100MG 3 tablets Orally Twice a day for 5 day(s) 06/13/2024 Active Immunizations Vaccine Route Administration Date Status Comme nts DECLINED, FLU Unknown 12/04/2012 Administered Fluarix Quadrivalent IM Intramuscular 11/08/2019 Administe red Covid Vaccine Unknown 05/15/2020 Administered Red a tito Red Influenza High Dose IM Intramuscular 11/02/2020 Administer ed SARS-COV-2 Pfizer Unknown 02/02/2021 Administered Olya mascorro's Fluarix Quadrivalent IM Intramuscular 10/29/2021 Administe red SARS-COV-2 Pfizer Unknown 02/02/2022 Administered Influenza High Dose IM Intramuscular 12/08/2022 Administer ed SARS-COV-2 Pfizer Unknown 01/16/2023 Administered [facility] Influenza High Dose IM Intramuscular 12/08/2023 Administer ed SARS-COV-2 Moderna 2022 Unknown 01/18/2024 Administered [facility] Influenza High Dose IM Intramuscular 12/12/2024 Administer ed Flu Vaccine Unknown 02/10/2015 Refused Fluarix Quadrivalent Unknown 10/13/2015 Refused Fluarix Quadrivalent Unknown 12/22/2015 Refused Fluarix Quadrivalent Unknown 10/20/2017 Refused PPSV23 (Pnemovax) Unknown 04/16/2018 Refused Fluarix Quadrivalent Unknown 10/22/2018 Refused Prevnar 13 Unknown 10/26/2018 Refused Fluarix Quadrivalent Unknown 04/29/2019 Refused PPSV23 (Pnemovax) Unknown 04/29/2019 Refused Social History Tobacco Use: Social History Observation [...] Problem Status W/U Status Risk Notes Problem Lymphocytosis (54535610) Lymphocytosis (D72.820) Active confirmed Problem 99435449 Coronary atherosclerosis due to lipid rich plaque (I25.83) Active confirmed Problem 2087094 Old myocardial infarction (I25.2) Active confirmed Problem 6219515 Prediabetes (R73.09) Active confirmed Problem 612704971 Non morbid obesi ty due to excess calories (E66.09) Active confirmed Problem 109182349 History of melan salazar (Z85.820) Active confirmed Problem 08685338 Erosive esophagi tis (K22.10) Active confirmed Problem 887815131 GERD (gastroesop hageal reflux disease) (K21.9) Active confirmed Problem 499095288 Pure hypercholesterolemia (E78.00) Active confirmed Problem 768888687 BMI 36.0-36.9,ad ult (Z68.36) Active confirmed Problem 920089879 Acute peptic ulc er with obstruction (K27.3) Active confirmed Problem 691150123 Enlarged testicl e (N50.89) Active confirmed Vital Signs Blood pressure diastolic 60 mm Hg 12/15/2023 jovan ght is up 2 pounds since 06-12-23 Height 70 in 06/13/2024 weight is 250 a t home no temp BP not taken Blood pressure systolic 132 mm Hg 12/15/2023 weig ht is up 2 pounds since 06-12-23 Weight 250 lbs 06/13/2024 weight is 250 a t home no temp BP not taken BMI 35.87 kg/m2 06/13/2024 weight is 250 a t home no temp BP not taken Encounters Encounter Location Date Provider Diagnosis Gio Coffey MD [address] [place] [id number] 06/06/2024 Gio Coffey Pure hypercholestero lemia E78.00 Gio Coffey MD [address] [place] [id number] 12/12/2024 Gio Coffey Prediabetes R73.09 ; Pure hypercholesterolemia E78.00 ; Lymphocytosis D72.820 and Encounter for administration of vaccine Z23 Gio Coffey MD [address] [place] [id number] 12/15/2023 Gio Coffey Old myocardial infar ction I25.2 ; Coronary atherosclerosis due to lipid rich plaque I25.83 ; History of melanoma Z85.820 ; Enlarged testicle N50.89 ; Rib pain R07.81 ; Prediabetes R73.09 ; Pure hypercholesterolemia E78.00 ; GERD (gastroesophageal reflux disease) K21.9 ; Colon cancer screening Z12.11 and Depression screening Z13.31 Gio Coffey MD [address] [place] [id number] 06/13/2024 Gio Coffey COVID-19 U07.1 Assessments Encounter Date Diagnosis (ICD Code) Assessment Notes Treatment Notes Treatment Clinical Notes Section Notes 06/06/2024 Pure hypercholesterolemia (ICD-10 - E78.00) 12/12/2024 Prediabetes (ICD-10 - R73.09) 12/12/2024 Pure hypercholesterolemia (ICD-10 - E78.00) 12/15/2023 Old myocardial infarction (ICD-10 - I25.2) doing well. no complaints, followed by cardiology 12/15/2023 Coronary atheroscler osis due to lipid rich plaque (ICD-10 - I25.83) had negative stress and echo recently, followed by cardiology 06/13/2024 COVID-19 (ICD-10 - U07.1) 12/12/2024 Lymphocytosis (ICD-1 0 - D72.820) 12/15/2023 History of melanoma (ICD-10 - Z85.820) no sign of recurrence 12/12/2024 Encounter for administration of vaccine (ICD-10 - Z23) 12/15/2023 Enlarged testicle (ICD-10 - N50.89) has [...] - Z13.31) negative screen Plan Of Treatment Pending Test Test Name Order Date Electrocardiogram (EKG) 09/21/2015 Electrocardiogram (EKG) 10/20/2017 Electrocardiogram (EKG) 10/26/2018 Complete Blood Count Auto Diff 5 Comprehensive Met. Panel 12/12/2024 Comprehensive [place]. Panel Fast 5 Microalbumin, Random 12/12/2024 UA ClnCatch+Micro w/rflx Cult 12/12/2024 Next Appt Details Provider Name:Gio Correa ier, 12/19/2024 01:00:00 PM, [address] [place] [address], [address], [place], [place], [id number], Insurance Providers Payer Name Payer Address Payer Phone Subscriber Number Group Number Insured Name Patient Relationship to Insured Coverage Start Date Coverage End Date MEDICARE NHIC [address] [place] [address] [id number] Vamshi Mejia Self - patient is the insured MEDEX BCBS OF [facility] [address] [place] [address] [id number] Vamshi Mejia Self - patient is the insured Medical (General) History Medical History History ICD Code psoriasis myocardial infarction duodenal ulcer disease colonoscopy 05/2010; peptic u lcer and helicobacter due in 10yrs(2020) coloonoscopy 2020 hyperplastic polyp due in 10 years Lymphocytosis D72.820 Lymphocytosis melanoma 08/26
== END 2024-12-12 11:06 | disposition home or self-care (01) ==
LOC: HO.LNP 11:05
PROVIDERS: Visit Provider Internal Medicine
DX: R73.03 Prediabetes (principal); E78.00 Pure hypercholesterolemia, unspecified; D72.820 Lymphocytosis (symptomatic); Z12.5 Encounter for screening for malignant neoplasm of prostate
CPT/HCPCS: 80053; 80061; 81001; 83036; 84153; 85025